=== PATIENT | female | born 1950 | race Caucasian/White ===

== ENCOUNTER → 2017-07-27 | Outpatient (CLI) | payer OTHER ==
[~2017-07-27] MED LIST: ASPI1TAB56 PO; CALC1TAB12 PO; CHOL1TAB42 PO; HYDR-3580 PO; LEVO.075 PO; LIOT5TAB3 PO; MELO15TA20 PO; TYLE325T PO
[2017-07-27 09:27] LABS: APTT (PATIENT) 26.1 SEC (24.3-30.1); HEMATOCRIT 40.3 % (35.0-46.0); MEAN CELL VOLUME 92.2 FL (80.0-100.0); MEAN CORPUSCULAR HGB CONC 33.6 % (32.0-36.0); PLATELET COUNT 289 TH/MM3 (150-450); PROTHROMBIN TIME - PATIENT 10.5 SEC (9.8-11.6); RED BLOOD COUNT 4.37 MIL/MM3 (4.00-5.30); RED CELL DISTRIBUTION WIDTH 13.7 % (11.6-17.2); REVIEW FLAG FINAL; WHITE BLOOD COUNT 5.4 TH/MM3 (4.0-11.0)
[2017-07-27 09:46] LABS: BACTERIA, URINE OCC /hpf; BLOOD, URINE SMALL (NEG); COMMENT (UR) CATH-CULTURE IND; CULTURE IF INDICATED CATH CULTURE IND; GLUCOSE,URINE NEG (NEG); KETONE, URINE NEG (NEG); MUCUS URINE FEW /lpf (OCC); NITRITE,URINE NEG (NEG); PH, URINE 5.5 (5.0-8.5); TRANSITIONAL EPI CELLS, URINE <1 /hpf; URINE COLOR YELLOW (YELLW/STRAW)
[2017-07-27 10:33] LABS: POTASSIUM 4.2 MEQ/L (3.5-5.1)
[2017-07-27 10:34] LABS: BICARBONATE 26.4 MEQ/L (21.0-32.0)
== END ==
LOC: CPRE 07:57
PROVIDERS: ATTEND Orthopaedic Surgery
DX: Z01.812 Encounter for preprocedural laboratory examination (principal); M16.12 Unilateral primary osteoarthritis, left hip; M87.052 Idiopathic aseptic necrosis of left femur; M79.609 Pain in unspecified limb; R82.90 Unspecified abnormal findings in urine
CPT/HCPCS: 36415; 80048; 81001; 85027; 85610; 85730; 87086

== ENCOUNTER 2017-07-31 05:17 | Inpatient (IN) | payer OTHER, MEDICARE ==
[~2017-07-31] VITALS: Ht 154.9 cm; Wt 57.3 kg
[~2017-07-31 05:17] MED LIST changes: -ASPI1TAB56 PO; -HYDR-3580 PO; +MELO-1 PO; -MELO15TA20 PO
[2017-07-31 06:05] LABS: BILIRUBIN, URINE NEG (NEG); BLOOD, URINE NEG (NEG); GLUCOSE,URINE NEG (NEG); KETONE, URINE NEG (NEG); MUCUS URINE FEW /lpf (OCC); NITRITE,URINE NEG (NEG); PH, URINE 5.5 (5.0-8.5); SQUAMOUS EPITHELIAL CELL URINE <1 /hpf (0-5); URINE COLOR YELLOW (YELLW/STRAW); URINE LEUKOCYTE ESTERASE NEG (NEG)
[2017-07-31] MEDS ORDERED: GENTAMICIN SULFATE 80 MG/2 ML VIAL ONE ×2 (06:13)
[2017-07-31] MEDS ORDERED: SODIUM CHLORID 0.9% 500 ML IV PRN ×2 (06:15)
[2017-07-31] MEDS ORDERED: LACTATED RINGER'S 1000 ML IV PRN ×2 (06:15)
[2017-07-31] MEDS ORDERED: CHLORHEXIDINE GLUCONATE 4% SOLN 120 ML BTL TOPICAL SCH ×2 (06:15)
[2017-07-31] MEDS ORDERED: POVIDONE IODINE 5% (ANTISEPSIS KIT) 4 APPLICATIONS EACH NARE PRN ×2 (06:15)
[2017-07-31] MEDS ORDERED: METOPROLOL TARTRATE 25 MG TAB PO PRN ×2 (06:15)
[2017-07-31] MEDS ORDERED: CHLORHEXIDINE GLUCONATE 2 % 1 PACK (2 CLOTHS) TOPICAL PRN ×2 (06:15)
[2017-07-31] MEDS ORDERED: INSULIN HUMAN REGULAR 1,000 UNITS/10 ML VIAL SQ PRN ×2 (06:15)
[2017-07-31] MEDS ORDERED: ceFAZolin 2 GM PREMIX 50 ML IV SCH ×2 (06:15)
[2017-07-31] MEDS ORDERED: ZOLPIDEM TARTRATE 5 MG TAB PO PRN ×2 (06:45)
[2017-07-31] MEDS ORDERED: Post-op Orders (for Pharmacy) MISC XX ONE ×2 (06:45)
[2017-07-31] MEDS ORDERED: MORPHINE SULFATE 8 MG/ML INJ IV PUSH PRN ×2 (06:45)
[2017-07-31] MEDS ORDERED: SODIUM CHLORIDE 0.9% FLUSH 5 ML FLUSH IVF PRN ×2 (06:45)
[2017-07-31] MEDS ORDERED: ONDANSETRON HCL 4 MG/2 ML VIAL IVP PRN ×2 (06:45)
[2017-07-31] MEDS ORDERED: ACETAMINOPHEN/HYDROcodone 325 MG/7.5 MG TAB PO PRN ×2 (06:45)
[2017-07-31] MEDS ORDERED: TRANEXAMIC ACID INJ 0 MG in SODIUM CHLORIDE 0.9% INJ 100 ML IV SCH ×4 (06:45)
[2017-07-31] MEDS ORDERED: BISACODYL 10 MG SUPP RECTAL PRN ×2 (06:45)
[2017-07-31] MEDS ORDERED: MAGNESIUM HYDROXIDE SUSP 30 ML CUP PO PRN ×2 (06:45)
[2017-07-31] MEDS ORDERED: EXPAREL PERI-ARTICULAR INJECTION (TOTAL VOL. 60 ML) P-ARTICULR SCH ×4 (07:00)
[2017-07-31] MEDS ORDERED: SODIUM CHLORIDE 0.9% IV SCH ×8 (07:00→10:00)
[2017-07-31] MEDS ORDERED: TRANEXAMIC ACID IV SCH ×8 (07:00→10:00)
[2017-07-31] MEDS ORDERED: ACETAMINOPHEN 1000 MG/100 ML 100 ML IV ONE ×2 (08:00)
--- NOTE | 2017-07-31 08:59 | HHI.PR ---
Immediate Post Op Note Procedure Date: Jul 31, 2017 Pre Op Diagnosis: (1) Primary osteoarthritis of left hip Post Op Diagnosis: (1) Primary osteoarthritis of left hip Surgeon: Al Tijerina MD Mechanical Specialist(s): JEB Hurley Procedure: Left total hip arthroplasty with Mchenry prosthesis Findings: OA left hip Complications: none Specimen(s) removed: none Estimated blood loss: 300 ml Anesthesia: General, Local (Exparel) Drains: None IVF Patient to: PACU Patient Condition: Good Implant/Devices: SEE IMPLANT LOG (if applicable) Date/Time of Procedure: SEE SURGICAL CARE RECORD Sarbjit Tijerina MD (Charles) Jul 31, 2017 08:59
--- NOTE | 2017-07-31 08:59 | HHI.PR ---
Immediate Post Op Note Procedure Date: Jul 31, 2017 Pre Op Diagnosis: (1) Primary osteoarthritis of left hip Post Op Diagnosis: (1) Primary osteoarthritis of left hip Surgeon: Al Tijerina MD Meteorological Equipment Repairer(s): JEB Hurley Procedure: Left total hip arthroplasty with Aurora prosthesis Findings: OA left hip Complications: none Specimen(s) removed: none Estimated blood loss: 300 ml Anesthesia: General, Local (Exparel) Drains: None IVF Patient to: PACU Patient Condition: Good Implant/Devices: SEE IMPLANT LOG (if applicable) Date/Time of Procedure: SEE SURGICAL CARE RECORD Sarbjit Tijerina MD (Charles) Jul 31, 2017 08:59
[2017-07-31] MEDS: SODIUM CHLORIDE 0.9% FLUSH 5 ML FLUSH IVF SCH ×4 (09:00→21:00)
[2017-07-31] MEDS ORDERED: ASPI-99 PO ×2 (09:04)
[2017-07-31] MEDS ORDERED: HYDR-3580 PO ×2 (09:04)
--- NOTE | 2017-07-31 09:07 | HHI.FF ---
Face to Face Verification Diagnosis: (1) Status post total replacement of left hip Physical Therapy Gait training Hip: Total hip, Protocol: Left, Posterior hip precautions, Progress to weight bearing Canvas Knee Splint: When in bed & 2 pillows btw thighs (for 2 months.) Left LE Weight Bearing: WB as tolerated Left LE Range of Motion: Active ROM Nursing Nursing: Dressing changes Dressing Changes: Daily dressing change, Coverderm/Primapore Additional Instructions Dressing changes begin on postop day 7. Remove steristrips on postop day 14. I have seen patient Mayelin Spain on 07/31/17. My clinical findings support the need for the requested home health care services because: Ltd mobility - disease progression Limited ability to care for self High risk of falls I certify that my clinical findings support that this patient is homebound because: Post-op weakness Unsteady gait/balance Unsafe to leave home unassisted Sarbjit Tijerina MD (Charles) Jul 31, 2017 09:07
[2017-07-31] MEDS ORDERED: DO NOT ADM ANY ANTICOAGULANT DRUGS PRN ×2 (09:15)
[2017-07-31] MEDS: LACTATED RINGER'S 1000 ML INJ 1,000 ML IV SCH ×4 (09:40→21:00)
[2017-07-31] MEDS: KETOROLAC TROMETHAMINE 30 MG/ML (IVP) VIAL IVP SCH ×6 (09:40→21:08)
[2017-07-31] MEDS ORDERED: *morphine SULFATE 8 MG/ML PERIprocedure ONLY ONE ×4 (09:43→09:57)
[2017-07-31] MEDS: CALCIUM/VITAMIN D 250 MG/125 U TAB PO SCH ×4 (10:00→21:00)
[2017-07-31] MEDS: CHOLECALCIFEROL (VIT D3) 1000 UNIT TAB PO SCH ×2 (10:00)
[2017-07-31 11:00] VITALS: BP 111/65; PULSE 79; RESP 18; TEMP 96.5; O2SAT 100
--- NOTE | 2017-07-31 15:31 | RADRPT ---
EXAM DATE/TIME: 07/31/2017 15:18 [place] COMPARISON: No previous studies available for comparison. INDICATIONS : Post op left hip surgery. MEDICAL HISTORY : None. SURGICAL HISTORY : None. ENCOUNTER: Initial ACUITY: 1 day PAIN SCORE: 2/10 LOCATION: Left hip FINDINGS: The patient is status post a total hip arthroplasty with a bipolar prosthesis. Prosthesis is well-sea allison. Alignment is anatomic. A fracture is not appreciated. CONCLUSION: Anatomic alignment. Christophe Payne MD FACR. Board Certified Radiologist. This report was verified electronically.
[2017-07-31 16:00] VITALS: BP 96/67; PULSE 77; RESP 18; TEMP 97.5; O2SAT 98
[2017-07-31 16:15] VITALS: O2SAT 99
--- NOTE | 2017-07-31 17:02 | PD.CONS ---
HPI Service [facility] Consult Requested By Dr. Al Tijerina Reason for Consult Medical management Primary Care Physician Celso Alexander MD Diagnoses: (1) Hypothyroidism (2) Breast cancer (3) Status post total replacement of left hip (4) Primary osteoarthritis of left hip History of Present Illness Patient is a 66-year-old female. Who underwent a left total hip arthroplasty today by Dr. Tijerina. Patient has been having pain in the left hip for at least 9 months. Has had worsening pain and disabling in activities of daily living has tried analgesics NSAIDs and weight loss without relief. Patient therefore elected to have surgery on her left total hip arthroplasty today tolerated the procedure well, has been seen postoperatively Review of Systems Constitutional: DENIES: Diaphoretic episodes, Fatigue, Fever, Weight gain, Weight loss, Chills, Dizziness, Change in appetite Endocrine: DENIES: Abnorml menstrual pattern, Heat/cold intolerance Eyes: DENIES: Blurred vision, Diplopia, Eye inflammation, Eye pain Ears, nose, mouth, throat: DENIES: Tinnitus, Hearing loss, Vertigo Respiratory: DENIES: Apneas, Cough, Snoring, Wheezing, Hemoptysis Cardiovascular: DENIES: Chest pain, Palpitations, Syncope, Dyspnea on Exertion Gastrointestinal: DENIES: Abdominal pain, Black stools, Bloody stools Genitourinary: DENIES: Abnormal vaginal bleeding, Dysmenorrhea Musculoskeletal: COMPLAINS OF: Joint pain, DENIES: Muscle aches, Stiffness, Joint Swelling Integumentary: DENIES: Abnormal pigmentation, Pruritus, Rash, Nail changes Hematologic/lymphatic: DENIES: Bruising, Lymphadenopathy Immunologic/allergic: DENIES: Eczema, Urticaria Neurologic: DENIES: Abnormal gait, Headache, Localized weakness, Paresthesias, Seizures Psychiatric: DENIES: Anxiety, Confusion, Mood changes, Depression Except as stated in HPI: all other systems reviewed are Neg Past Family Social History Allergies: Coded Allergies: No Known Allergies (Unverified , 07/27/17) Past Medical History History of fractured clavicle History of breast cancer on the right Osteoarthritis Hypothyroidism Vitamin D deficiency Past Surgical History Tonsillectomy Breast implants Lumpectomy right breast in 1988 Breast implant redo Right bunionectomy Facelift Thyroidectomy Reported Medications Reported Meds & Active Scripts Active Hydrocodone-Acetaminophen 7.5-325 mg Tab 1 Tab PO Q4H PRN Reported Tylenol (Acetaminophen) 325 Mg Tab 325 Mg PO BID Meloxicam 15 Mg Tab 15 Mg PO DAILY Vitamin D-3 (Cholecalciferol) 2,000 Unit Tab 2,000 Tab PO DAILY Calcium 500 +D (Calcium Carbonate-Cholecalciferol) 500-400 Mg-Unit Tab 1 Tab PO BID Liothyronine (Liothyronine Sodium) 5 Mcg Tab 5 Mcg PO DAILY Synthroid (Levothyroxine Sodium) 75 Mcg Tab 75 Mcg PO DAILY Active Ordered Medications Current Medications Chlorhexidine Gluconate (Hibiclens 4% Top Soln) 1 applic ONCE TOPICAL ; Start 07/31/17 at 06:15; Stop 08/03/17 at 06:14 Cefazolin Sodium/ Dextrose 50 ml @ 100 mls/hr ODD PIECE CHECKER IV Last administered on 07/31/17 07:44; Start 07/31/17 at 06:15; Stop 08/01/17 at 06:14 Tranexamic Acid 573 mg/Sodium Chloride 105.73 ml @ 200 mls/ hr ONCE IV ; Start 07/31/17 at 10:00; Stop 07/31/17 at 16:00; Status DC Bupivacaine Liposome 20 ml/ Sodium Chloride 60 ml @ 120 mls/hr ONCE P-ARTICULR ; Start 07/31/17 at 07:00; Stop 07/31/17 at 13:00; Status DC Tranexamic Acid 573 mg/Sodium Chloride 105.73 ml @ 200 mls/ hr ONCE IV Last administered on 07/31/17 07:42; Start 07/31/17 at 07:00; Stop 07/31/17 at 13:00 ; Status DC Lactated Ringer's 1,000 ml @ 30 mls/hr Q24H PRN IV SEE LABEL COMMENTS Last administered on 07/31/17 06:00; Start 07/31/17 at 06:15; Stop 08/03/17 at 06:14 Sodium Chloride 500 ml @ 30 mls/hr [id number] PRN IV SEE LABEL COMMENTS; Start at 06:15; Stop 08/03/17 at 06:14 Metoprolol Tartrate (Lopressor) 25 mg ODD PIECE CHECKER PRN PO SEE LABEL COMMENTS; Start 07/31/17 at 06:15; Stop 08/03/17 at 06:14 Povidone Iodine (Betadine 5% Antisepsis Kit) 1 applic ODD PIECE CHECKER PRN EACH NARE SEE LABEL COMMENTS Last administered on 07/31/17 06:05; Start 07/31/17 at 06:15 ; Stop 08/03/17 at 06:14 Chlorhexidine Gluconate (Chlorhexidine 2% Cloth) 3 pack ODD PIECE CHECKER PRN TOPICAL SEE LABEL COMMENTS Last administered on 07/31/17 05:35; Start 07/31/17 at 06:15 ; Stop 08/03/17 at 06:14 Insulin Human Regular (NovoLIN R INJ) See Protocol Table ... ODD PIECE CHECKER PRN SQ SEE PROTOCOL TABLE; Start 07/31/17 at 06:15; Stop 08/03/17 at 06:14 Gentamicin Sulfate (Gentamicin Inj) 240 mg STK-MED ONCE .ROUTE Last administered on 07/31/17 07:45; Start 07/31/17 at 06:13; Stop 07/31/17 at 06:14 ; Status DC Lactated Ringer's 1,000 ml @ 80 mls/hr [id number] IV Last administered on 09:40; Start 07/31/17 at 08:30 IV Flush (NS Flush) 2 ml UNSCH PRN IVF FLUSH AFTER USING IV ACCESS; Start 07/31 at 06:45 IV Flush (NS Flush) 2 ml BID IVF ; Start 07/31/17 at 09:00 Cefazolin Sodium 1000 mg/Sodium Chloride 100 ml @ 200 mls/hr Q6H IV ; Start at 14:00; Stop 08/01/17 at 02:29 Miscellaneous Information (Post-op Orders (for Pharmacy)) STAT ONCE XX ; Start 07/31/17 at 06:45; Stop 07/31/17 at 08:17; Status DC Morphine Sulfate (Morphine Inj) 4 mg Q3H PRN IV PUSH BREAKTHROUGH PAIN; Start 07/31/17 at 06:45 Acetaminophen/ Hydrocodone Bitart ([place] 7.5-325 Mg) 1 tab Q4H PRN PO PAIN LESS THAN 5 ON SCALE; Start 07/31/17 at 06:45 Acetaminophen/ Hydrocodone Bitart ([place] 7.5-325 Mg) 2 tab Q4H PRN PO PAIN SCALE 5 TO 10; Start 07/31/17 at 06:45 Ketorolac Tromethamine (Toradol Inj) 15 mg Q6H IVP Last administered on 09:40; Start 07/31/17 at 09:00; Stop 08/02/17 at 03:01 Tranexamic Acid / Sodium Chloride 100 ml @ 200 mls/hr UNSCH IV ; Start at 06:45; Stop 07/31/17 at 07:14; Status UNV Ondansetron HCl (Zofran Inj) 4 mg Q6H PRN IVP NAUSEA OR VOMITING; Start at 06:45 Docusate Sodium (Colace) 100 mg BID PO ; Start 08/01/17 at 21:00 Zolpidem Tartrate (Ambien) 5 mg HS PRN PO SLEEP; Start 07/31/17 at 06:45 Bisacodyl (Dulcolax Supp) 10 mg DAILY PRN RECTAL CONSTIPATION; Start 07/31/17 at 06:45 Magnesium Hydroxide (Milk Of Magnesia Liq) 30 ml DAILY PRN PO CONSTIPATION; Start 07/31/17 at 06:45 Aspirin (Ecotrin Ec) 81 mg BID PO ; Start 08/01/17 at 08:00 Acetaminophen (Tylenol) 325 mg BID PO ; Start 07/31/17 at 21:00 Levothyroxine Sodium (Synthroid) 75 mcg DAILY@0600 PO ; Start 08/01/17 at 06:00 Liothyronine Sodium (Cytomel) 5 mcg DAILY PO ; Start 08/01/17 at 09:00 Calcium/Vitamin D (Oscal-D 250-125) 500 mg BID PO ; Start 07/31/17 at 10:00 Cholecalciferol (Vitamin D3) 2,000 units DAILY PO ; Start 07/31/17 at 10:00 Acetaminophen 100 ml @ As Directed STK-MED ONCE IV ; Start 07/31/17 at 08:00; Stop 07/31/17 at 08:01; Status DC Morphine Sulfate (*morphine INJ PERIprocedure ONLY) 8 mg STK-MED ONCE .ROUTE Last administered on 07/31/17 09:43; Start 07/31/17 at 09:43; Stop 07/31/17 at 09:44; Status DC Morphine Sulfate (*morphine INJ PERIprocedure ONLY) 8 mg STK-MED ONCE .ROUTE Last administered on 11/6/17at 09:57; Start 07/31/17 at 09:57; Stop 07/31/17 at 09:58; Status DC Miscellaneous Information ALL NURSING DEPARTME... UNSCH PRN .XX SEE LABEL COMMENTS; Start 07/31/17 at 09:15; Stop 08/01/17 at 09:14 Family History Father age 83 with renal failure Mother age 77 myocardial infarction Grandmother had diabetes Her daughter has diabetes Social History She is retired computer animator Denies any tobacco Has 3 vodka drinks a week Plays pickle ball and bloating Physical Exam Vital Signs Vital Signs Date Time Temp Pulse Resp B/P (MAP) Pulse Ox O2 Delivery O2 Flow Rate FiO2 07/31/17 16:15 99 Nasal Cannula 2.00 07/31/17 11:00 96.5 79 18 111/65 (80) 100 07/31/17 10:30 79 20 127/67 (87) 100 Nasal Cannula 2 07/31/17 10:15 84 20 121/65 (83) 100 Nasal Cannula 2 07/31/17 10:00 83 20 122/68 (86) 100 Nasal Cannula 2 07/31/17 09:45 82 20 119/66 (83) 100 Nasal Cannula 2 07/31/17 09:30 93 20 104/58 (73) 98 07/31/17 09:19 97.8 110 20 135/66 (89) 100 Nasal Cannula 4 07/31/17 05:55 98.2 90 16 112/74 (87) 96 Physical Exam GENERAL: This is a well-nourished, well-developed patient, in no apparent distress. SKIN: No rashes, ecchymoses or lesions. Cool and dry. HEAD: Atraumatic. Normocephalic. No temporal or scalp tenderness. EYES: Pupils equal round and reactive. Extraocular motions intact. No scleral icterus. No injection or drainage. ENT: Nose without bleeding, purulent drainage or septal hematoma. Throat without erythema, tonsillar hypertrophy or exudate. Uvula midline. Airway patent. NECK: Trachea midline. No JVD or lymphadenopathy. Supple, nontender, no meningeal signs. CARDIOVASCULAR: Regular rate and rhythm without murmurs, gallops, or rubs. RESPIRATORY: Clear to auscultation. Breath sounds equal bilaterally. No wheezes , rales, or rhonchi. GASTROINTESTINAL: Abdomen soft, non-tender, nondistended. No hepato-splenomegaly , or palpable masses. No guarding. MUSCULOSKELETAL: Extremities without clubbing, cyanosis, or edema. No joint tenderness, effusion, or edema noted. No calf tenderness. Negative Homans sign bilaterally. NEUROLOGICAL: Awake and alert. Cranial nerves II through XII intact. Motor and sensory grossly within normal limits. 4 out of 5 muscle strength in all muscle groups. Normal speech. Laboratory Laboratory Tests Test 07/31/17 05:50 Urine Color YELLOW Urine Turbidity CLEAR Urine pH 5.5 Urine Specific [place] 1.019 Urine Protein TRACE Urine Glucose (UA) NEG Urine Ketones NEG Urine Occult Blood NEG Urine Nitrite NEG Urine Bilirubin NEG Urine Urobilinogen LESS THAN 2.0 Urine Leukocyte Esterase NEG Urine RBC 1 Urine WBC LESS THAN 1 Urine Squamous Epithelial Cells <1 Urine Mucus FEW Microscopic Urinalysis Comment CATH-CULT NOT IND Imaging Last Impressions Hip X-Ray 07/31/17 0642 Signed Impressions: Service Date/Time: Monday, July 31, 2017 15:18 - CONCLUSION: Anatomic alignment. Christophe Payne MD Assessment and Plan Problem List: (1) Hypothyroidism ICD Code: E03.9 - Hypothyroidism, unspecified (2) Breast cancer ICD Code: C50.919 - Malignant neoplasm of unspecified site of unspecified female breast (3) Primary osteoarthritis of left hip ICD Code: M16.12 - Unilateral primary osteoarthritis, left hip (4) Status post total replacement of left hip ICD Code: Z96.642 - Presence of left artificial hip joint Assessment and Plan Status post left total hip arthroplasty pain control Meds for constipation Hypothyroidism resume home medications History of breast cancer stable Osteoarthritis chronic continue narcotics at this time Vitamin D deficiency continue home medications Constipation see med reconciliation and when necessary medications Code Status Full code Discussed Condition With Patient and RN Christophe Ritchie DO Jul 31, 2017 17:02
--- NOTE | 2017-07-31 17:02 | PD.CONS ---
HPI Service [facility] ([place], [place])ists Consult Requested By Dr. Al Tijerina Reason for Consult Medical management Primary Care Physician Celso Alexander MD Diagnoses: (1) Hypothyroidism (2) Breast cancer (3) Status post total replacement of left hip (4) Primary osteoarthritis of left hip History of Present Illness Patient is a 66-year-old female. Who underwent a left total hip arthroplasty today by Dr. Tijerina. Patient has been having pain in the left hip for at least 9 months. Has had worsening pain and disabling in activities of daily living has tried analgesics NSAIDs and weight loss without relief. Patient therefore elected to have surgery on her left total hip arthroplasty today tolerated the procedure well, has been seen postoperatively Review of Systems Constitutional: DENIES: Diaphoretic episodes, Fatigue, Fever, Weight gain, Weight loss, Chills, Dizziness, Change in appetite Endocrine: DENIES: Abnorml menstrual pattern, Heat/cold intolerance Eyes: DENIES: Blurred vision, Diplopia, Eye inflammation, Eye pain Ears, nose, mouth, throat: DENIES: Tinnitus, Hearing loss, Vertigo Respiratory: DENIES: Apneas, Cough, Snoring, Wheezing, Hemoptysis Cardiovascular: DENIES: Chest pain, Palpitations, Syncope, Dyspnea on Exertion Gastrointestinal: DENIES: Abdominal pain, Black stools, Bloody stools Genitourinary: DENIES: Abnormal vaginal bleeding, Dysmenorrhea Musculoskeletal: COMPLAINS OF: Joint pain, DENIES: Muscle aches, Stiffness, Joint Swelling Integumentary: DENIES: Abnormal pigmentation, Pruritus, Rash, Nail changes Hematologic/lymphatic: DENIES: Bruising, Lymphadenopathy Immunologic/allergic: DENIES: Eczema, Urticaria Neurologic: DENIES: Abnormal gait, Headache, Localized weakness, Paresthesias, Seizures Psychiatric: DENIES: Anxiety, Confusion, Mood changes, Depression Except as stated in HPI: all other systems reviewed are Neg Past Family Social History Allergies: Coded Allergies: No Known Allergies (Unverified , 07/27/17) Past Medical History History of fractured clavicle History of breast cancer on the right Osteoarthritis Hypothyroidism Vitamin D deficiency Past Surgical History Tonsillectomy Breast implants Lumpectomy right breast in 1988 Breast implant redo Right bunionectomy Facelift Thyroidectomy Reported Medications Reported Meds & Active Scripts Active Hydrocodone-Acetaminophen 7.5-325 mg Tab 1 Tab PO Q4H PRN Reported Tylenol (Acetaminophen) 325 Mg Tab 325 Mg PO BID Meloxicam 15 Mg Tab 15 Mg PO DAILY Vitamin D-3 (Cholecalciferol) 2,000 Unit Tab 2,000 Tab PO DAILY Calcium 500 +D (Calcium Carbonate-Cholecalciferol) 500-400 Mg-Unit Tab 1 Tab PO BID Liothyronine (Liothyronine Sodium) 5 Mcg Tab 5 Mcg PO DAILY Synthroid (Levothyroxine Sodium) 75 Mcg Tab 75 Mcg PO DAILY Active Ordered Medications Current Medications Chlorhexidine Gluconate (Hibiclens 4% Top Soln) 1 applic ONCE TOPICAL ; Start 07/31/17 at 06:15; Stop 08/03/17 at 06:14 Cefazolin Sodium/ Dextrose 50 ml @ 100 mls/hr PHARMACY BENEFIT MANAGER IV Last administered on 07/31/17 07:44; Start 07/31/17 at 06:15; Stop 08/01/17 at 06:14 Tranexamic Acid 573 mg/Sodium Chloride 105.73 ml @ 200 mls/ hr ONCE IV ; Start 07/31/17 at 10:00; Stop 07/31/17 at 16:00; Status DC Bupivacaine Liposome 20 ml/ Sodium Chloride 60 ml @ 120 mls/hr ONCE P-ARTICULR ; Start 07/31/17 at 07:00; Stop 07/31/17 at 13:00; Status DC Tranexamic Acid 573 mg/Sodium Chloride 105.73 ml @ 200 mls/ hr ONCE IV Last administered on 07/31/17 07:42; Start 07/31/17 at 07:00; Stop 07/31/17 at 13:00 ; Status DC Lactated Ringer's 1,000 ml @ 30 mls/hr Q24H PRN IV SEE LABEL COMMENTS Last administered on 07/31/17 06:00; Start 07/31/17 at 06:15; Stop 08/03/17 at 06:14 Sodium Chloride 500 ml @ 30 mls/hr [id number] PRN IV SEE LABEL COMMENTS; Start at 06:15; Stop 08/03/17 at 06:14 Metoprolol Tartrate (Lopressor) 25 mg PHARMACY BENEFIT MANAGER PRN PO SEE LABEL COMMENTS; Start 07/31/17 at 06:15; Stop 08/03/17 at 06:14 Povidone Iodine (Betadine 5% Antisepsis Kit) 1 applic PHARMACY BENEFIT MANAGER PRN EACH NARE SEE LABEL COMMENTS Last administered on 07/31/17 06:05; Start 07/31/17 at 06:15 ; Stop 08/03/17 at 06:14 Chlorhexidine Gluconate (Chlorhexidine 2% Cloth) 3 pack PHARMACY BENEFIT MANAGER PRN TOPICAL SEE LABEL COMMENTS Last administered on 07/31/17 05:35; Start 07/31/17 at 06:15 ; Stop 08/03/17 at 06:14 Insulin Human Regular (NovoLIN R INJ) See Protocol Table ... PHARMACY BENEFIT MANAGER PRN SQ SEE PROTOCOL TABLE; Start 07/31/17 at 06:15; Stop 08/03/17 at 06:14 Gentamicin Sulfate (Gentamicin Inj) 240 mg STK-MED ONCE .ROUTE Last administered on 07/31/17 07:45; Start 07/31/17 at 06:13; Stop 07/31/17 at 06:14 ; Status DC Lactated Ringer's 1,000 ml @ 80 mls/hr [id number] IV Last administered on 09:40; Start 07/31/17 at 08:30 IV Flush (NS Flush) 2 ml UNSCH PRN IVF FLUSH AFTER USING IV ACCESS; Start 07/31 at 06:45 IV Flush (NS Flush) 2 ml BID IVF ; Start 07/31/17 at 09:00 Cefazolin Sodium 1000 mg/Sodium Chloride 100 ml @ 200 mls/hr Q6H IV ; Start at 14:00; Stop 08/01/17 at 02:29 Miscellaneous Information (Post-op Orders (for Pharmacy)) STAT ONCE XX ; Start 07/31/17 at 06:45; Stop 07/31/17 at 08:17; Status DC Morphine Sulfate (Morphine Inj) 4 mg Q3H PRN IV PUSH BREAKTHROUGH PAIN; Start 07/31/17 at 06:45 Acetaminophen/ Hydrocodone Bitart ([place] 7.5-325 Mg) 1 tab Q4H PRN PO PAIN LESS THAN 5 ON SCALE; Start 07/31/17 at 06:45 Acetaminophen/ Hydrocodone Bitart ([place] 7.5-325 Mg) 2 tab Q4H PRN PO PAIN SCALE 5 TO 10; Start 07/31/17 at 06:45 Ketorolac Tromethamine (Toradol Inj) 15 mg Q6H IVP Last administered on 09:40; Start 07/31/17 at 09:00; Stop 08/02/17 at 03:01 Tranexamic Acid / Sodium Chloride 100 ml @ 200 mls/hr UNSCH IV ; Start at 06:45; Stop 07/31/17 at 07:14; Status UNV Ondansetron HCl (Zofran Inj) 4 mg Q6H PRN IVP NAUSEA OR VOMITING; Start at 06:45 Docusate Sodium (Colace) 100 mg BID PO ; Start 08/01/17 at 21:00 Zolpidem Tartrate (Ambien) 5 mg HS PRN PO SLEEP; Start 07/31/17 at 06:45 Bisacodyl (Dulcolax Supp) 10 mg DAILY PRN RECTAL CONSTIPATION; Start 07/31/17 at 06:45 Magnesium Hydroxide (Milk Of Magnesia Liq) 30 ml DAILY PRN PO CONSTIPATION; Start 07/31/17 at 06:45 Aspirin (Ecotrin Ec) 81 mg BID PO ; Start 08/01/17 at 08:00 Acetaminophen (Tylenol) 325 mg BID PO ; Start 07/31/17 at 21:00 Levothyroxine Sodium (Synthroid) 75 mcg DAILY@0600 PO ; Start 08/01/17 at 06:00 Liothyronine Sodium (Cytomel) 5 mcg DAILY PO ; Start 08/01/17 at 09:00 Calcium/Vitamin D (Oscal-D 250-125) 500 mg BID PO ; Start 07/31/17 at 10:00 Cholecalciferol (Vitamin D3) 2,000 units DAILY PO ; Start 07/31/17 at 10:00 Acetaminophen 100 ml @ As Directed STK-MED ONCE IV ; Start 07/31/17 at 08:00; Stop 07/31/17 at 08:01; Status DC Morphine Sulfate (*morphine INJ PERIprocedure ONLY) 8 mg STK-MED ONCE .ROUTE Last administered on 07/31/17 09:43; Start 07/31/17 at 09:43; Stop 07/31/17 at 09:44; Status DC Morphine Sulfate (*morphine INJ PERIprocedure ONLY) 8 mg STK-MED ONCE .ROUTE Last administered on 11/6/17at 09:57; Start 07/31/17 at 09:57; Stop 07/31/17 at 09:58; Status DC Miscellaneous Information ALL NURSING DEPARTME... 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 Denies any tobacco Has 3 vodka drinks a week Plays pickle ball and bloating Physical Exam Vital Signs Vital Signs Date Time Temp Pulse Resp B/P (MAP) Pulse Ox O2 Delivery O2 Flow Rate FiO2 07/31/17 16:15 99 Nasal Cannula 2.00 07/31/17 11:00 96.5 79 18 111/65 (80) 100 07/31/17 10:30 79 20 127/67 (87) 100 Nasal Cannula 2 07/31/17 10:15 84 20 121/65 (83) 100 Nasal Cannula 2 07/31/17 10:00 83 20 122/68 (86) 100 Nasal Cannula 2 07/31/17 09:45 82 20 119/66 (83) 100 Nasal Cannula 2 07/31/17 09:30 93 20 104/58 (73) 98 07/31/17 09:19 97.8 110 20 135/66 (89) 100 Nasal Cannula 4 07/31/17 05:55 98.2 90 16 112/74 (87) 96 Physical Exam GENERAL: This is a well-nourished, well-developed patient, in no apparent distress. SKIN: No rashes, ecchymoses or lesions. Cool and dry. HEAD: Atraumatic. Normocephalic. No temporal or scalp tenderness. EYES: Pupils equal round and reactive. Extraocular motions intact. No scleral icterus. No injection or drainage. ENT: Nose without bleeding, purulent drainage or septal hematoma. Throat without erythema, tonsillar hypertrophy or exudate. Uvula midline. Airway patent. NECK: Trachea midline. No JVD or lymphadenopathy. Supple, nontender, no meningeal signs. CARDIOVASCULAR: Regular rate and rhythm without murmurs, gallops, or rubs. RESPIRATORY: Clear to auscultation. Breath sounds equal bilaterally. No wheezes , rales, or rhonchi. GASTROINTESTINAL: Abdomen soft, non-tender, nondistended. No hepato-splenomegaly , or palpable masses. No guarding. MUSCULOSKELETAL: Extremities without clubbing, cyanosis, or edema. No joint tenderness, effusion, or edema noted. No calf tenderness. Negative Homans sign bilaterally. NEUROLOGICAL: Awake and alert. Cranial nerves II through XII intact. Motor and sensory grossly within normal limits. 4 out of 5 muscle strength in all muscle groups. Normal speech. Laboratory Laboratory Tests Test 07/31/17 05:50 Urine Color YELLOW Urine Turbidity CLEAR Urine pH 5.5 Urine Specific [place] 1.019 Urine Protein TRACE Urine Glucose (UA) NEG Urine Ketones NEG Urine Occult Blood NEG Urine Nitrite NEG Urine Bilirubin NEG Urine Urobilinogen LESS THAN 2.0 Urine Leukocyte Esterase NEG Urine RBC 1 Urine WBC LESS THAN 1 Urine Squamous Epithelial Cells <1 Urine Mucus FEW Microscopic Urinalysis Comment CATH-CULT NOT IND Imaging Last Impressions Hip X-Ray 07/31/17 0642 Signed Impressions: Service Date/Time: Monday, July 31, 2017 15:18 - CONCLUSION: Anatomic alignment. Christophe Payne MD Assessment and Plan Problem List: (1) Hypothyroidism ICD Code: E03.9 - Hypothyroidism, unspecified (2) Breast cancer ICD Code: C50.919 - Malignant neoplasm of unspecified site of unspecified female breast (3) Primary osteoarthritis of left hip ICD Code: M16.12 - Unilateral primary osteoarthritis, left hip (4) Status post total replacement of left hip ICD Code: Z96.642 - Presence of left artificial hip joint Assessment and Plan Status post left total hip arthroplasty pain control Meds for constipation Hypothyroidism resume home medications History of breast cancer stable Osteoarthritis chronic continue narcotics at this time Vitamin D deficiency continue home medications Constipation see med reconciliation and when necessary medications Code Status Full code Discussed Condition With Patient and RN Christophe Ritchie DO Jul 31, 2017 17:02
--- NOTE | 2017-07-31 17:02 | PD.CONS ---
[facility] Reason for Consult Medical management Primary Care Physician Celso Alexander MD Diagnoses: (1) Hypothyroidism (2) Breast cancer (3) Status post total replacement of left hip (4) Primary osteoarthritis of left hip History of Present Illness Patient is a 66-year-old female. Who underwent a left total hip arthroplasty today by Dr. Tijerina. Patient has been having pain in the left hip for at least 9 months. Has had worsening pain and disabling in activities of daily living has tried analgesics NSAIDs and weight loss without relief. Patient therefore elected to have surgery on her left total hip arthroplasty today tolerated the procedure well, has been seen postoperatively Review of Systems Constitutional: DENIES: Diaphoretic episodes, Fatigue, Fever, Weight gain, Weight loss, Chills, Dizziness, Change in appetite Endocrine: DENIES: Abnorml menstrual pattern, Heat/cold intolerance Eyes: DENIES: Blurred vision, Diplopia, Eye inflammation, Eye pain Ears, nose, mouth, throat: DENIES: Tinnitus, Hearing loss, Vertigo Respiratory: DENIES: Apneas, Cough, Snoring, Wheezing, Hemoptysis Cardiovascular: DENIES: Chest pain, Palpitations, Syncope, Dyspnea on Exertion Gastrointestinal: DENIES: Abdominal pain, Black stools, Bloody stools Genitourinary: DENIES: Abnormal vaginal bleeding, Dysmenorrhea Musculoskeletal: COMPLAINS OF: Joint pain, DENIES: Muscle aches, Stiffness, Joint Swelling Integumentary: DENIES: Abnormal pigmentation, Pruritus, Rash, Nail changes Hematologic/lymphatic: DENIES: Bruising, Lymphadenopathy Immunologic/allergic: DENIES: Eczema, Urticaria Neurologic: DENIES: Abnormal gait, Headache, Localized weakness, Paresthesias, Seizures Psychiatric: DENIES: Anxiety, Confusion, Mood changes, Depression Except as stated in HPI: all other systems reviewed are Neg Past Family Social History Allergies: Coded Allergies: No Known Allergies (Unverified , 07/27/17) Past Medical History History of fractured clavicle History of breast cancer on the right Osteoarthritis Hypothyroidism Vitamin D deficiency Past Surgical History Tonsillectomy Breast implants Lumpectomy right breast in 1988 Breast implant redo Right bunionectomy Facelift Thyroidectomy Reported Medications Reported Meds & Active Scripts Active Hydrocodone-Acetaminophen 7.5-325 mg Tab 1 Tab PO Q4H PRN Reported Tylenol (Acetaminophen) 325 Mg Tab 325 Mg PO BID Meloxicam 15 Mg Tab 15 Mg PO DAILY Vitamin D-3 (Cholecalciferol) 2,000 Unit Tab 2,000 Tab PO DAILY Calcium 500 +D (Calcium Carbonate-Cholecalciferol) 500-400 Mg-Unit Tab 1 Tab PO BID Liothyronine (Liothyronine Sodium) 5 Mcg Tab 5 Mcg PO DAILY Synthroid (Levothyroxine Sodium) 75 Mcg Tab 75 Mcg PO DAILY Active Ordered Medications Current Medications Chlorhexidine Gluconate (Hibiclens 4% Top Soln) 1 applic ONCE TOPICAL ; Start 07/31/17 at 06:15; Stop 08/03/17 at 06:14 Cefazolin Sodium/ Dextrose 50 ml @ 100 mls/hr LUMBER YARD WORKER IV Last administered on 07/31/17 07:44; Start 07/31/17 at 06:15; Stop 08/01/17 at 06:14 Tranexamic Acid 573 mg/Sodium Chloride 105.73 ml @ 200 mls/ hr ONCE IV ; Start 07/31/17 at 10:00; Stop 07/31/17 at 16:00; Status DC Bupivacaine Liposome 20 ml/ Sodium Chloride 60 ml @ 120 mls/hr ONCE P-ARTICULR ; Start 07/31/17 at 07:00; Stop 07/31/17 at 13:00; Status DC Tranexamic Acid 573 mg/Sodium Chloride 105.73 ml @ 200 mls/ hr ONCE IV Last administered on 07/31/17 07:42; Start 07/31/17 at 07:00; Stop 07/31/17 at 13:00 ; Status DC Lactated Ringer's 1,000 ml @ 30 mls/hr Q24H PRN IV SEE LABEL COMMENTS Last administered on 07/31/17 06:00; Start 07/31/17 at 06:15; Stop 08/03/17 at 06:14 Sodium Chloride 500 ml @ 30 mls/hr [id number] PRN IV SEE LABEL COMMENTS; Start at 06:15; Stop 08/03/17 at 06:14 Metoprolol Tartrate (Lopressor) 25 mg LUMBER YARD WORKER PRN PO SEE LABEL COMMENTS; Start 07/31/17 at 06:15; Stop 08/03/17 at 06:14 Povidone Iodine (Betadine 5% Antisepsis Kit) 1 applic LUMBER YARD WORKER PRN EACH NARE SEE LABEL COMMENTS Last administered on 07/31/17 06:05; Start 07/31/17 at 06:15 ; Stop 08/03/17 at 06:14 Chlorhexidine Gluconate (Chlorhexidine 2% Cloth) 3 pack LUMBER YARD WORKER PRN TOPICAL SEE LABEL COMMENTS Last administered on 07/31/17 05:35; Start 07/31/17 at 06:15 ; Stop 08/03/17 at 06:14 Insulin Human Regular (NovoLIN R INJ) See Protocol Table ... LUMBER YARD WORKER PRN SQ SEE PROTOCOL TABLE; Start 07/31/17 at 06:15; Stop 08/03/17 at 06:14 Gentamicin Sulfate (Gentamicin Inj) 240 mg STK-MED ONCE .ROUTE Last administered on 07/31/17 07:45; Start 07/31/17 at 06:13; Stop 07/31/17 at 06:14 ; Status DC Lactated Ringer's 1,000 ml @ 80 mls/hr [id number] IV Last administered on 09:40; Start 07/31/17 at 08:30 IV Flush (NS Flush) 2 ml UNSCH PRN IVF FLUSH AFTER USING IV ACCESS; Start 07/31 at 06:45 IV Flush (NS Flush) 2 ml BID IVF ; Start 07/31/17 at 09:00 Cefazolin Sodium 1000 mg/Sodium Chloride 100 ml @ 200 mls/hr Q6H IV ; Start at 14:00; Stop 08/01/17 at 02:29 Miscellaneous Information (Post-op Orders (for Pharmacy)) STAT ONCE XX ; Start 07/31/17 at 06:45; Stop 07/31/17 at 08:17; Status DC Morphine Sulfate (Morphine Inj) 4 mg Q3H PRN IV PUSH BREAKTHROUGH PAIN; Start 07/31/17 at 06:45 Acetaminophen/ Hydrocodone Bitart ([place] 7.5-325 Mg) 1 tab Q4H PRN PO PAIN LESS THAN 5 ON SCALE; Start 07/31/17 at 06:45 Acetaminophen/ Hydrocodone Bitart ([place] 7.5-325 Mg) 2 tab Q4H PRN PO PAIN SCALE 5 TO 10; Start 07/31/17 at 06:45 Ketorolac Tromethamine (Toradol Inj) 15 mg Q6H IVP Last administered on 09:40; Start 07/31/17 at 09:00; Stop 08/02/17 at 03:01 Tranexamic Acid / Sodium Chloride 100 ml @ 200 mls/hr UNSCH IV ; Start at 06:45; Stop 07/31/17 at 07:14; Status UNV Ondansetron HCl (Zofran Inj) 4 mg Q6H PRN IVP NAUSEA OR VOMITING; Start at 06:45 Docusate Sodium (Colace) 100 mg BID PO ; Start 08/01/17 at 21:00 Zolpidem Tartrate (Ambien) 5 mg HS PRN PO SLEEP; Start 07/31/17 at 06:45 Bisacodyl (Dulcolax Supp) 10 mg DAILY PRN RECTAL CONSTIPATION; Start 07/31/17 at 06:45 Magnesium Hydroxide (Milk Of Magnesia Liq) 30 ml DAILY PRN PO CONSTIPATION; Start 07/31/17 at 06:45 Aspirin (Ecotrin Ec) 81 mg BID PO ; Start 08/01/17 at 08:00 Acetaminophen (Tylenol) 325 mg BID PO ; Start 07/31/17 at 21:00 Levothyroxine Sodium (Synthroid) 75 mcg DAILY@0600 PO ; Start 08/01/17 at 06:00 Liothyronine Sodium (Cytomel) 5 mcg DAILY PO ; Start 08/01/17 at 09:00 Calcium/Vitamin D (Oscal-D 250-125) 500 mg BID PO ; Start 07/31/17 at 10:00 Cholecalciferol (Vitamin D3) 2,000 units DAILY PO ; Start 07/31/17 at 10:00 Acetaminophen 100 ml @ As Directed STK-MED ONCE IV ; Start 07/31/17 at 08:00; Stop 07/31/17 at 08:01; Status DC Morphine Sulfate (*morphine INJ PERIprocedure ONLY) 8 mg STK-MED ONCE .ROUTE Last administered on 07/31/17 09:43; Start 07/31/17 at 09:43; Stop 07/31/17 at 09:44; Status DC Morphine Sulfate (*morphine INJ PERIprocedure ONLY) 8 mg STK-MED ONCE .ROUTE Last administered on 11/6/17at 09:57; Start 07/31/17 at 09:57; Stop 07/31/17 at 09:58; Status DC Miscellaneous Information ALL NURSING DEPARTME... UNSCH PRN .XX SEE LABEL COMMENTS; Start 07/31/17 at 09:15; Stop 08/01/17 at 09:14 Family History Father age 83 with renal failure Mother age 77 myocardial infarction Grandmother had diabetes Her daughter has diabetes Social History She is retired computer consultant Denies any tobacco Has 3 vodka drinks a week Plays pickle ball and bloating Physical Exam Vital Signs Vital Signs Date Time Temp Pulse Resp B/P (MAP) Pulse Ox O2 Delivery O2 Flow Rate FiO2 07/31/17 16:15 99 Nasal Cannula 2.00 07/31/17 11:00 96.5 79 18 111/65 (80) 100 07/31/17 10:30 79 20 127/67 (87) 100 Nasal Cannula 2 07/31/17 10:15 84 20 121/65 (83) 100 Nasal Cannula 2 07/31/17 10:00 83 20 122/68 (86) 100 Nasal Cannula 2 07/31/17 09:45 82 20 119/66 (83) 100 Nasal Cannula 2 07/31/17 09:30 93 20 104/58 (73) 98 07/31/17 09:19 97.8 110 20 135/66 (89) 100 Nasal Cannula 4 07/31/17 05:55 98.2 90 16 112/74 (87) 96 Physical Exam GENERAL: This is a well-nourished, well-developed patient, in no apparent distress. SKIN: No rashes, ecchymoses or lesions. Cool and dry. HEAD: Atraumatic. Normocephalic. No temporal or scalp tenderness. EYES: Pupils equal round and reactive. Extraocular motions intact. No scleral icterus. No injection or drainage. ENT: Nose without bleeding, purulent drainage or septal hematoma. Throat without erythema, tonsillar hypertrophy or exudate. Uvula midline. Airway patent. NECK: Trachea midline. No JVD or lymphadenopathy. Supple, nontender, no meningeal signs. CARDIOVASCULAR: Regular rate and rhythm without murmurs, gallops, or rubs. RESPIRATORY: Clear to auscultation. Breath sounds equal bilaterally. No wheezes , rales, or rhonchi. GASTROINTESTINAL: Abdomen soft, non-tender, nondistended. No hepato-splenomegaly , or palpable masses. No guarding. MUSCULOSKELETAL: Extremities without clubbing, cyanosis, or edema. No joint tenderness, effusion, or edema noted. No calf tenderness. Negative Homans sign bilaterally. NEUROLOGICAL: Awake and alert. Cranial nerves II through XII intact. Motor and sensory grossly within normal limits. 4 out of 5 muscle strength in all muscle groups. Normal speech. Laboratory Laboratory Tests Test 07/31/17 05:50 Urine Color YELLOW Urine Turbidity CLEAR Urine pH 5.5 Urine Specific [place] 1.019 Urine Protein TRACE Urine Glucose (UA) NEG Urine Ketones NEG Urine Occult Blood NEG Urine Nitrite NEG Urine Bilirubin NEG Urine Urobilinogen LESS THAN 2.0 Urine Leukocyte Esterase NEG Urine RBC 1 Urine WBC LESS THAN 1 Urine Squamous Epithelial Cells <1 Urine Mucus FEW Microscopic Urinalysis Comment CATH-CULT NOT IND Imaging Last Impressions Hip X-Ray 07/31/17 0642 Signed Impressions: Service Date/Time: Monday, July 31, 2017 15:18 - CONCLUSION: Anatomic alignment. Christophe Payne MD Assessment and Plan Problem List: (1) Hypothyroidism ICD Code: E03.9 - Hypothyroidism, unspecified (2) Breast cancer ICD Code: C50.919 - Malignant neoplasm of unspecified site of unspecified female breast (3) Primary osteoarthritis of left hip ICD Code: M16.12 - Unilateral primary osteoarthritis, left hip (4) Status post total replacement of left hip ICD Code: Z96.642 - Presence of left artificial hip joint Assessment and Plan Status post left total hip arthroplasty pain control Meds for constipation Hypothyroidism resume home medications History of breast cancer stable Osteoarthritis chronic continue narcotics at this time Vitamin D deficiency continue home medications Constipation see med reconciliation and when necessary medications Code Status Full code Discussed Condition With Patient and RN Christophe Ritchie DO Jul 31, 2017 17:02
--- NOTE | 2017-07-31 19:29 | MP ---
cc: Jose ZHOU. DATE OF SURGERY: 07/31/2017 PREOPERATIVE DIAGNOSIS: Primary osteoarthritis left hip. POSTOPERATIVE DIAGNOSIS Primary osteoarthritis left hip. OPERATION PERFORMED Left total hip arthroplasty with Gabriela prosthesis. SURGEON Art Zhou MD MICROFILM PROCESSOR: JEB Hurley ANESTHESIA: General endotracheal anesthesia with supplemental local with Exparel. INDICATIONS AND FINDINGS This 66 year-old woman began having left hip pain about 9 months ago which has progressively worsened to the point that her ambulation tolerance is only about 15 minutes because of the pain. She has pain in the groin, hip, thigh and buttocks area. She has difficulty moving the hip. Prior to this she was very active, doing a variety of sports. She has not responded to conservative measures with anti-inflammatory agents, analgesics, intra-articular corticosteroids, activity modification, exercise and ambulatory aids. X-rays show severe arthritis in the hip going to [id number] with some irregularity in the posterior aspect of the acetabulum. There are multiple cysts. Clinical findings showed pain on motion with significantly antalgic gait and decreased motion. OPERATIVE FINDINGS Severe osteoarthritis in the hip with loss of articular cartilage to [id number]. The prosthesis used was a Gabriela prosthesis with the acetabulum being a Tritanium cluster shell size 50 mm outer diameter with a single screw along with a 32 mm inner diameter, 0 degrees liner of X3 polyethylene. The femur was an Accolade II, femoral stem size 3 x 127 degrees with a Biolox Delta 32 mm outer diameter -4 mm neck length head. PROCEDURE The patient was brought to the clean-air operating suite and general anesthetic was administered. She was placed in the lateral position on a Biomet lateral positioner with a left hip up and an axillary roll under the right shoulder. The left hip, thigh and leg were then prepped with alcohol, Hibiclens and Chloraprep and draped in the usual manner with the hip draped free. An appropriate time-out procedure was carried out. A posterior lateral incision was then made going from the mid trochanteric area proximally about 15 cm. The incision was deepened through the subcutaneous tissues to the upper portion of the fascia carmen and the gluteus fascia. Gluteus fascia was then incised in line with its fibers along the raphe and the gluteus gladys fibers were split. A retractor was placed under the gluteus minimus exposing the capsule and the piriformis and obturator conjoined tendon. The conjoin tendon was then was detached from the greater trochanter on the undersurface and reflected posteriorly. The capsule was then opened longitudinally and then down to the femoral neck along the posterior aspect of the femoral neck. The hip was then dislocated. The femoral neck was then transected with the oscillating saw. The head was then removed. Retractors were placed about the proximal femur. Femoral preparation was initiated with a box osteotome followed by a curette for identification of the canal and then serial broaching going from size zero to size three. Calcar planing was carried out. The hip was then repositioned. The acetabulum was exposed. The soft tissues were then removed from about the acetabulum including the labrum, ligamentum teres and other tissues. Reaming was then initiated starting with a size 43 mm reamer and going in 1-mm increments to size 49 mm. At 49 mm a trial reduction was carried out with a size 50 cup. This seated appropriately with a good fit and good coverage. The trial prosthesis was removed. The titanium cluster shell was impacted into place and seated appropriately. Drill hole was made in the superior aspect of the acetabulum through the fenestration in the cuff. An appropriate size screw was then inserted. The 0 degree liner was then impacted into place into the acetabular cup. The hip was then repositioned. A trial reduction was carried out with the -4 mm neck length trial. This was somewhat tight, therefore, re-broaching was carried out with the #2 and #3 broaches. After this was done and calcar planing was completed, the stability and mobility were found to be appropriate. The leg length was appropriate. There was no instability. There is no pistoning. The hip motion was excellent. The trial prosthesis and broach were then removed. The medullary canal was cleaned with pulse lavage. Exparel was then injected throughout the hip. The femoral stem size 3 x 132 degrees was impacted into the proximal femur. When this was fully seated a trial reduction was again carried out with a -4 mm neck length trial. This was appropriate, therefore, the trunnion was cleaned and dried and fitted with a Biolox Delta femoral head size 32 mm outer diameter by -4 mm neck length. When this was fully seated the hip was taken through a range of motion which showed excellent range of motion with excellent stability, no pistoning, and appropriate leg lengths. After the remainder of the Exparel was injected throughout the hip, the wound was then closed in layers using #1 Vicryl interrupted [id number] sutures for capsular closure, a transosseous #1 suture for reattachment of the capsule end, external rotators to the appropriate position in the posterior aspect of the greater trochanter. The sciatic nerve was checked and was found to be unmolested. The upper portion of the fascia carmen and the gluteus fascia were then repaired with #1 Vicryl interrupted [id number] sutures. The subcutaneous tissues were closed with 2-0 Vicryl interrupted simple sutures with buried knots. The skin was closed with continuous subcuticular closure of 4-0 Monocryl. The wound was then dressed with Steri-Strips followed by dry dressing in the form of a silver impregnated dressing. The patient was placed into a knee immobilizer and transferred to the recovery room in satisfactory condition having tolerated the procedure well. Counts were correct. Specimens none. Estimated blood loss 300 mm. MD BRI Santoyo/AZALIA /9:14 AM /6:56 PM
[2017-07-31 20:00] VITALS: BP 103/59; PULSE 76; RESP 17; TEMP 97.5; O2SAT 99
[2017-07-31] MEDS: ACETAMINOPHEN 325 MG TAB PO SCH ×2 (21:00)
[2017-07-31] MEDS: ACETAMINOPHEN/HYDROcodone 325 MG/7.5 MG TAB PO PRN ×2 (21:11)
[2017-08-01] VITALS: BP 102/53; PULSE 71; RESP 16; TEMP 97.9; O2SAT 98
[2017-08-01] MEDS: KETOROLAC TROMETHAMINE 30 MG/ML (IVP) VIAL IVP SCH ×6 (02:38→14:36)
[2017-08-01] MEDS: ACETAMINOPHEN/HYDROcodone 325 MG/7.5 MG TAB PO PRN ×2 (02:40)
[2017-08-01 04:00] VITALS: BP 95/51; PULSE 95; RESP 17; TEMP 98; O2SAT 99
[2017-08-01] MEDS ORDERED: LEVOTHYROXINE SODIUM 75 MCG TAB PO SCH ×2 (06:00)
--- NOTE | 2017-08-01 06:16 | PD.ORT.PN ---
Subjective Post Op Day #: 1 Subjective Remarks She is doing well. She wants to go home today. Distance Walked Stood to pivot; became diaphoretic. Objective Vitals Vital Signs Date Time Temp Pulse Resp B/P (MAP) Pulse Ox O2 Delivery O2 Flow Rate FiO2 08/01/17 00:00 97.9 71 16 102/53 (69) 98 07/31/17 20:00 97.5 76 17 103/59 (74) 99 07/31/17 16:15 99 Nasal Cannula 2.00 07/31/17 16:00 97.5 77 18 96/67 (77) 98 07/31/17 11:00 96.5 79 18 111/65 (80) 100 07/31/17 10:30 79 20 127/67 (87) 100 Nasal Cannula 2 07/31/17 10:15 84 20 121/65 (83) 100 Nasal Cannula 2 07/31/17 10:00 83 20 122/68 (86) 100 Nasal Cannula 2 07/31/17 09:45 82 20 119/66 (83) 100 Nasal Cannula 2 07/31/17 09:30 93 20 104/58 (73) 98 07/31/17 09:19 97.8 110 20 135/66 (89) 100 Nasal Cannula 4 I/O 07/31/17 07/31/17 07/31/17 08/01/17 08/01/17 08/01/17 07:00 15:00 23:00 07:00 15:00 23:00 Intake Total 1880 ml 200 ml Output Total 200 ml Balance 1680 ml 200 ml Intake Oral 480 ml IV Total 200 ml Other 1400 ml Output Estimated Blood Loss 200 ml # Voids 1 Imaging Last 24 hours Impressions Hip X-Ray 07/31/17 0642 Signed Impressions: Service Date/Time: Monday, July 31, 2017 15:18 - CONCLUSION: Anatomic alignment. Christophe Payne MD Objective Remarks She is resting comfortably, supine in bed. The dressing is dry and intact. The neurovascular status is intact. Assessment & Plan Ortho Post Op Day #: 1 Problem List: (1) Status post total replacement of left hip ICD Codes: Z96.642 - Presence of left artificial hip joint Plan: Continue postop care and PT. Assessment and Plan Condition: Good. Orthopaedically stable. DVT prophylaxis: TEDs, ASA, sequentials. Discharge plans: Home with C Has appointment. Rx: [place] 7.5/325 Sarbjit Tijerina MD (Charles) Aug 01, 2017 06:16
[2017-08-01 07:51] VITALS: O2SAT 99
[2017-08-01 08:00] VITALS: BP 80/53; PULSE 92; RESP 18; TEMP 98.5; O2SAT 97
[2017-08-01] MEDS ORDERED: ASPIRIN EC 81 MG TABEC PO SCH ×2 (08:00)
[2017-08-01] MEDS: CALCIUM/VITAMIN D 250 MG/125 U TAB PO SCH ×2 (08:55)
[2017-08-01] MEDS: ACETAMINOPHEN 325 MG TAB PO SCH ×2 (08:55)
[2017-08-01] MEDS: CHOLECALCIFEROL (VIT D3) 1000 UNIT TAB PO SCH ×2 (08:55)
[2017-08-01] MEDS: SODIUM CHLORIDE 0.9% FLUSH 5 ML FLUSH IVF SCH ×2 (08:56)
[2017-08-01] MEDS: LACTATED RINGER'S 1000 ML INJ 1,000 ML IV SCH ×2 (08:56)
[2017-08-01] MEDS ORDERED: LIOTHYRONINE SODIUM 5 MCG TAB PO SCH ×2 (09:00)
[2017-08-01 11:49] LABS: AUTOMATED NEUTROPHIL # 7.6 TH/MM3 (1.8-7.7); BASOPHIL % 0.4 % (0.0-2.0); EOSINOPHIL # 0.1 TH/MM3 (0-0.4); EOSINOPHIL % 0.7 % (0.0-4.0); HEMATOCRIT 31.7 % (35.0-46.0); HEMOGLOBIN 10.7 GM/DL (11.6-15.3); LYMPH % 17.4 % (9.0-44.0); LYMPHOCYTE # 1.9 TH/MM3 (1.0-4.8); MEAN CELL VOLUME 92.9 FL (80.0-100.0); MEAN CORPUSCULAR HEMOGLOBIN 31.5 PG (27.0-34.0); MEAN CORPUSCULAR HGB CONC 33.9 % (32.0-36.0); MEAN PLATELET VOLUME 8.9 FL (7.0-11.0); MONO % 10.8 % (0.0-8.0); MONOCYTE # 1.2 TH/MM3 (0-0.9); NEUT % 70.7 % (16.0-70.0); PLATELET COUNT 236 TH/MM3 (150-450); RED BLOOD COUNT 3.41 MIL/MM3 (4.00-5.30); RED CELL DISTRIBUTION WIDTH 13.7 % (11.6-17.2); WHITE BLOOD COUNT 10.8 TH/MM3 (4.0-11.0)
[2017-08-01 12:00] VITALS: BP 103/64; PULSE 84; RESP 18; TEMP 98.1; O2SAT 97
[2017-08-01 12:09] LABS: ALT (GPT) 42 U/L (10-53); AST (GOT) 53 U/L (15-37); BICARBONATE 27.8 MEQ/L (21.0-32.0); BLOOD UREA NITROGEN 11 MG/DL (7-18); CALCIUM 8.9 MG/DL (8.5-10.1); CHLORIDE 103 MEQ/L (98-107); CREATININE 0.86 MG/DL (0.50-1.00); GLOMERULAR FILTRATION RATE 66 ML/MIN (>89); GLUCOSE,RANDOM 94 MG/DL (74-106); MAGNESIUM 2.1 MG/DL (1.5-2.5); PHOSPHORUS 2.8 MG/DL (2.5-4.9); SODIUM (NA) 138 MEQ/L (136-145)
[2017-08-01 12:18] LABS: ALKALINE PHOSPHATASE 53 U/L (45-117); FREE T4 1.35 NG/DL (0.76-1.46); TOTAL BILIRUBIN ADULT 0.5 MG/DL (0.2-1.0)
[2017-08-01 14:22] VITALS: BP 95/60
--- NOTE | 2017-08-01 15:06 | HHI.PR ---
Subjective Remarks Patient is a 66-year-old female. Who underwent a left total hip arthroplasty today by Dr. Zhou. Patient has been having pain in the left hip for at least 9 months. Has had worsening pain and disabling in activities of daily living has tried analgesics NSAIDs and weight loss without relief. Patient therefore elected to have surgery on her left total hip arthroplasty today tolerated the procedure well, has been seen postoperatively 11-7 CLEARED MEDICALLY FOR DC DC TO HOME HYDRATE IF BLOOD PRESSURE IS BORDERLINE DW RN AND PT AND Objective Vitals Vital Signs Date Time Temp Pulse Resp B/P (MAP) Pulse Ox O2 Delivery O2 Flow Rate FiO2 08/01/17 14:22 95/60 (72) 08/01/17 12:00 98.1 84 18 103/64 (77) 97 08/01/17 08:00 98.5 92 18 80/53 (62) 97 08/01/17 07:51 99 Nasal Cannula 2.00 08/01/17 04:00 98.0 95 17 95/51 (66) 99 08/01/17 00:00 97.9 71 16 102/53 (69) 98 07/31/17 20:00 97.5 76 17 103/59 (74) 99 07/31/17 16:15 99 Nasal Cannula 2.00 07/31/17 16:00 97.5 77 18 96/67 (77) 98 I/O 07/31/17 07/31/17 07/31/17 08/01/17 08/01/17 08/01/17 07:00 15:00 23:00 07:00 15:00 23:00 Intake Total 1880 ml 200 ml 480 ml Output Total 200 ml Balance 1680 ml 200 ml 480 ml Intake Oral 480 ml 480 ml IV Total 200 ml Other 1400 ml Output Estimated Blood Loss 200 ml # Voids 1 3 # Bowel Movements 0 Result Diagram: 08/01/17 1132 08/01/17 1132 Other Results Laboratory Tests Test 07/31/17 05:50 08/01/17 11:32 Urine Color YELLOW Urine Turbidity CLEAR Urine pH 5.5 Urine Specific [place] 1.019 Urine Protein TRACE mg/dL Urine Glucose (UA) NEG mg/dL Urine Ketones NEG mg/dL Urine Occult Blood NEG Urine Nitrite NEG Urine Bilirubin NEG Urine Urobilinogen LESS THAN 2.0 MG/DL Urine Leukocyte Esterase NEG Urine RBC 1 /hpf Urine WBC LESS THAN 1 /hpf Urine Squamous Epithelial Cells <1 /hpf Urine Mucus FEW /lpf Microscopic Urinalysis Comment CATH-CULT NOT IND White Blood Count 10.8 TH/MM3 Red Blood Count 3.41 MIL/MM3 Hemoglobin 10.7 GM/DL Hematocrit 31.7 % Mean Corpuscular Volume 92.9 FL Mean Corpuscular Hemoglobin 31.5 PG Mean Corpuscular Hemoglobin Concent 33.9 % Red Cell Distribution Width 13.7 % Platelet Count 236 TH/MM3 Mean Platelet Volume 8.9 FL Neutrophils (%) (Auto) 70.7 % Lymphocytes (%) (Auto) 17.4 % Monocytes (%) (Auto) 10.8 % Eosinophils (%) (Auto) 0.7 % Basophils (%) (Auto) 0.4 % Neutrophils # (Auto) 7.6 TH/MM3 Lymphocytes # (Auto) 1.9 TH/MM3 Monocytes # (Auto) 1.2 TH/MM3 Eosinophils # (Auto) 0.1 TH/MM3 Basophils # (Auto) 0.0 TH/MM3 CBC Comment DIFF FINAL Differential Comment Blood Urea Nitrogen 11 MG/DL Creatinine 0.86 MG/DL Random Glucose 94 MG/DL Total Protein 6.0 GM/DL Albumin 3.0 GM/DL Calcium Level 8.9 MG/DL Phosphorus Level 2.8 MG/DL Magnesium Level 2.1 MG/DL Alkaline Phosphatase 53 U/L Aspartate Amino Transf (AST/SGOT) 53 U/L Alanine Aminotransferase (ALT/SGPT) 42 U/L Total Bilirubin 0.5 MG/DL Sodium Level 138 MEQ/L Potassium Level 4.4 MEQ/L Chloride Level 103 MEQ/L Carbon Dioxide Level 27.8 MEQ/L Anion Gap 7 MEQ/L Estimat Glomerular Filtration Rate 66 ML/MIN Free Thyroxine 1.35 NG/DL Thyroid Stimulating Hormone 3rd Gen 0.893 uIU/ML Imaging Last Impressions Hip X-Ray 07/31/17 0642 Signed Impressions: Service Date/Time: Monday, July 31, 2017 15:18 - CONCLUSION: Anatomic alignment. Christophe Payne MD Objective Remarks GENERAL: This is a well-nourished, well-developed patient, in no apparent distress. SKIN: No rashes, ecchymoses or lesions. Cool and dry. HEAD: Atraumatic. Normocephalic. No temporal or scalp tenderness. EYES: Pupils equal round and reactive. Extraocular motions intact. No scleral icterus. No injection or drainage. ENT: Nose without bleeding, purulent drainage or septal hematoma. Throat without erythema, tonsillar hypertrophy or exudate. Uvula midline. Airway patent. NECK: Trachea midline. No JVD or lymphadenopathy. Supple, nontender, no meningeal signs. CARDIOVASCULAR: Regular rate and rhythm without murmurs, gallops, or rubs. RESPIRATORY: Clear to auscultation. Breath sounds equal bilaterally. No wheezes , rales, or rhonchi. GASTROINTESTINAL: Abdomen soft, non-tender, nondistended. No hepato-splenomegaly , or palpable masses. No guarding. MUSCULOSKELETAL: Extremities without clubbing, cyanosis, or edema. No joint tenderness, effusion, or edema noted. No calf tenderness. Negative Homans sign bilaterally. NEUROLOGICAL: Awake and alert. Cranial nerves II through XII intact. Motor and sensory grossly within normal limits. 5 out of 5 muscle strength in all muscle groups. Normal speech. INSIGHT AND JUDGEMENT ARE GOOD MOOD AND BEHAVIOR ARE APPROPRIATE Procedures Jose ZHOU. DATE OF SURGERY: 07/31/2017 PREOPERATIVE DIAGNOSIS: Primary osteoarthritis left hip. POSTOPERATIVE DIAGNOSIS Primary osteoarthritis left hip. OPERATION PERFORMED Left total hip arthroplasty with [place] prosthesis. SURGEON Art Zhou MD SIGNALS COLLECTOR/ANALYST: JEB Hurley ANESTHESIA: General endotracheal anesthesia with supplemental local with Exparel. INDICATIONS AND FINDINGS This 66 year-old woman began having left hip pain about 9 months ago which has progressively worsened to the point that her ambulation tolerance is only about 15 minutes because of the pain. She has pain in the groin, hip, thigh and buttocks area. She has difficulty moving the hip. Prior to this she was very active, doing a variety of sports. She has not responded to conservative measures with anti-inflammatory agents, analgesics, intra-articular corticosteroids, activity modification, exercise and ambulatory aids. X-rays show severe arthritis in the hip going to [id number] with some irregularity in the posterior aspect of the acetabulum. There are multiple cysts. Clinical findings showed pain on motion with significantly antalgic gait and decreased motion. OPERATIVE FINDINGS Severe osteoarthritis in the hip with loss of articular cartilage to [id number]. The prosthesis used was a Gabriela prosthesis with the acetabulum being a Tritanium cluster shell size 50 mm outer diameter with a single screw along with a 32 mm inner diameter, 0 degrees liner of X3 polyethylene. The femur was an Accolade II, femoral stem size 3 x 127 degrees with a Biolox Delta 32 mm outer diameter -4 mm neck length head. PROCEDURE The patient was brought to the clean-air operating suite and general anesthetic was administered. She was placed in the lateral position on a Biomet lateral positioner with a left hip up and an axillary roll under the right shoulder. The left hip, thigh and leg were then prepped with alcohol, Hibiclens and Chloraprep and draped in the usual manner with the hip draped free. An appropriate time-out procedure was carried out. A posterior lateral incision was then made going from the mid trochanteric area proximally about 15 cm. The incision was deepened through the subcutaneous tissues to the upper portion of the fascia carmen and the gluteus fascia. Gluteus fascia was then incised in line with its fibers along the raphe and the gluteus gladys fibers were split. A retractor was placed under the gluteus minimus exposing the capsule and the piriformis and obturator conjoined tendon. The conjoin tendon was then was detached from the greater trochanter on the undersurface and reflected posteriorly. The capsule was then opened longitudinally and then down to the femoral neck along the posterior aspect of the femoral neck. The hip was then dislocated. The femoral neck was then transected with the oscillating saw. The head was then removed. Retractors were placed about the proximal femur. Femoral preparation was initiated with a box osteotome followed by a curette for identification of the canal and then serial broaching going from size zero to size three. Calcar planing was carried out. The hip was then repositioned. The acetabulum was exposed. The soft tissues were then removed from about the acetabulum including the labrum, ligamentum teres and other tissues. Reaming was then initiated starting with a size 43 mm reamer and going in 1-mm increments to size 49 mm. At 49 mm a trial reduction was carried out with a size 50 cup. This seated appropriately with a good fit and good coverage. The trial prosthesis was removed. The titanium cluster shell was impacted into place and seated appropriately. Drill hole was made in the superior aspect of the acetabulum through the fenestration in the cuff. An appropriate size screw was then inserted. The 0 degree liner was then impacted into place into the acetabular cup. The hip was then repositioned. A trial reduction was carried out with the -4 mm neck length trial. This was somewhat tight, therefore, re-broaching was carried out with the #2 and #3 broaches. After this was done and calcar planing was completed, the stability and mobility were found to be appropriate. The leg length was appropriate. There was no instability. There is no pistoning. The hip motion was excellent. The trial prosthesis and broach were then removed. The medullary canal was cleaned with pulse lavage. Exparel was then injected throughout the hip. The femoral stem size 3 x 132 degrees was impacted into the proximal femur. When this was fully seated a trial reduction was again carried out with a -4 mm neck length trial. This was appropriate, therefore, the trunnion was cleaned and dried and fitted with a Biolox Delta femoral head size 32 mm outer diameter by -4 mm neck length. When this was fully seated the hip was taken through a range of motion which showed excellent range of motion with excellent stability, no pistoning, and appropriate leg lengths. After the remainder of the Exparel was injected throughout the hip, the wound was then closed in layers using #1 Vicryl interrupted [id number] sutures for capsular closure, a transosseous #1 suture for reattachment of the capsule end, external rotators to the appropriate position in the posterior aspect of the greater trochanter. The sciatic nerve was checked and was found to be unmolested. The upper portion of the fascia carmen and the gluteus fascia were then repaired with #1 Vicryl interrupted [id number] sutures. The subcutaneous tissues were closed with 2-0 Vicryl interrupted simple sutures with buried knots. The skin was closed with continuous subcuticular closure of 4-0 Monocryl. The wound was then dressed with Steri-Strips followed by dry dressing in the form of a silver impregnated dressing. The patient was placed into a knee immobilizer and transferred to the recovery room in satisfactory condition having tolerated the procedure well. Counts were correct. Specimens none. Estimated blood loss 300 mm. Medications and IVs Current Medications Chlorhexidine Gluconate (Hibiclens 4% Top Soln) 1 applic ONCE TOPICAL ; Start 07/31/17 at 06:15; Stop 08/03/17 at 06:14 Cefazolin Sodium/ Dextrose 50 ml @ 100 mls/hr SR TECHNICAL SALES CONSULTANT IV Last administered on 07/31/17 07:44; Start 07/31/17 at 06:15; Stop 08/01/17 at 06:14; Status DC Tranexamic Acid 573 mg/Sodium Chloride 105.73 ml @ 200 mls/ hr ONCE IV ; Start 07/31/17 at 10:00; Stop 07/31/17 at 16:00; Status DC Bupivacaine Liposome 20 ml/ Sodium Chloride 60 ml @ 120 mls/hr ONCE P-ARTICULR ; Start 07/31/17 at 07:00; Stop 07/31/17 at 13:00; Status DC Tranexamic Acid 573 mg/Sodium Chloride 105.73 ml @ 200 mls/ hr ONCE IV Last administered on 07/31/17 07:42; Start 07/31/17 at 07:00; Stop 07/31/17 at 13:00 ; Status DC Lactated Ringer's 1,000 ml @ 30 mls/hr Q24H PRN IV SEE LABEL COMMENTS Last administered on 07/31/17 06:00; Start 07/31/17 at 06:15; Stop 08/03/17 at 06:14 Sodium Chloride 500 ml @ 30 mls/hr [id number] PRN IV SEE LABEL COMMENTS; Start at 06:15; Stop 08/03/17 at 06:14 Metoprolol Tartrate (Lopressor) 25 mg SR TECHNICAL SALES CONSULTANT PRN PO SEE LABEL COMMENTS; Start 07/31/17 at 06:15; Stop 08/03/17 at 06:14 Povidone Iodine (Betadine 5% Antisepsis Kit) 1 applic SR TECHNICAL SALES CONSULTANT PRN EACH NARE SEE LABEL COMMENTS Last administered on 07/31/17 06:05; Start 07/31/17 at 06:15 ; Stop 08/03/17 at 06:14 Chlorhexidine Gluconate (Chlorhexidine 2% Cloth) 3 pack SR TECHNICAL SALES CONSULTANT PRN TOPICAL SEE LABEL COMMENTS Last administered on 07/31/17 05:35; Start 07/31/17 at 06:15 ; Stop 08/03/17 at 06:14 Insulin Human Regular (NovoLIN R INJ) See Protocol Table ... SR TECHNICAL SALES CONSULTANT PRN SQ SEE PROTOCOL TABLE; Start 07/31/17 at 06:15; Stop 08/03/17 at 06:14 Gentamicin Sulfate (Gentamicin Inj) 240 mg STK-MED ONCE .ROUTE Last administered on 07/31/17 07:45; Start 07/31/17 at 06:13; Stop 07/31/17 at 06:14 ; Status DC Lactated Ringer's 1,000 ml @ 80 mls/hr [id number] IV Last administered on 09:40; Start 07/31/17 at 08:30 IV Flush (NS Flush) 2 ml UNSCH PRN IVF FLUSH AFTER USING IV ACCESS; Start 07/31 at 06:45 IV Flush (NS Flush) 2 ml BID IVF ; Start 07/31/17 at 09:00 Cefazolin Sodium 1000 mg/Sodium Chloride 100 ml @ 200 mls/hr Q6H IV Last administered on 08/01/17 02:41; Start 07/31/17 at 14:00; Stop 08/01/17 at 02:29 ; Status DC Miscellaneous Information (Post-op Orders (for Pharmacy)) STAT ONCE XX ; Start 07/31/17 at 06:45; Stop 07/31/17 at 08:17; Status DC Morphine Sulfate (Morphine Inj) 4 mg Q3H PRN IV PUSH BREAKTHROUGH PAIN; Start 07/31/17 at 06:45 Acetaminophen/ Hydrocodone Bitart ([place] 7.5-325 Mg) 1 tab Q4H PRN PO PAIN LESS THAN 5 ON SCALE Last administered on 08/01/17 02:40; Start 07/31/17 at 06: 45 Acetaminophen/ Hydrocodone Bitart ([place] 7.5-325 Mg) 2 tab Q4H PRN PO PAIN SCALE 5 TO 10; Start 07/31/17 at 06:45 Ketorolac Tromethamine (Toradol Inj) 15 mg Q6H IVP Last administered on 14:36; Start 07/31/17 at 09:00; Stop 08/02/17 at 03:01 Tranexamic Acid / Sodium Chloride 100 ml @ 200 mls/hr UNSCH IV ; Start at 06:45; Stop 07/31/17 at 07:14; Status UNV Ondansetron HCl (Zofran Inj) 4 mg Q6H PRN IVP NAUSEA OR VOMITING; Start at 06:45 Docusate Sodium (Colace) 100 mg BID PO ; Start 08/01/17 at 21:00 Zolpidem Tartrate (Ambien) 5 mg HS PRN PO SLEEP; Start 07/31/17 at 06:45 Bisacodyl (Dulcolax Supp) 10 mg DAILY PRN RECTAL CONSTIPATION; Start 07/31/17 at 06:45 Magnesium Hydroxide (Milk Of Magnesia Liq) 30 ml DAILY PRN PO CONSTIPATION; Start 07/31/17 at 06:45 Aspirin (Ecotrin Ec) 81 mg BID PO Last administered on 08/01/17 08:54; Start 08/01/17 at 08:00 Acetaminophen (Tylenol) 325 mg BID PO Last administered on 08/01/17 08:55; Start 07/31/17 at 21:00 Levothyroxine Sodium (Synthroid) 75 mcg DAILY@0600 PO ; Start 08/01/17 at 06:00 Liothyronine Sodium (Cytomel) 5 mcg DAILY PO ; Start 08/01/17 at 09:00 Calcium/Vitamin D (Oscal-D 250-125) 500 mg BID PO ; Start 07/31/17 at 10:00 Cholecalciferol (Vitamin D3) 2,000 units DAILY PO ; Start 07/31/17 at 10:00 Acetaminophen 100 ml @ As Directed STK-MED ONCE IV ; Start 07/31/17 at 08:00; Stop 07/31/17 at 08:01; Status DC Morphine Sulfate (*morphine INJ PERIprocedure ONLY) 8 mg STK-MED ONCE .ROUTE Last administered on 07/31/17 09:43; Start 07/31/17 at 09:43; Stop 07/31/17 at 09:44; Status DC Morphine Sulfate (*morphine INJ PERIprocedure ONLY) 8 mg STK-MED ONCE .ROUTE Last administered on 07/31/17 09:57; Start 07/31/17 at 09:57; Stop 07/31/17 at 09:58; Status DC Miscellaneous Information ALL NURSING DEPARTME... UNSCH PRN .XX SEE LABEL COMMENTS; Start 07/31/17 at 09:15; Stop 08/01/17 at 09:14; Status DC A/P Problem List: (1) Hypothyroidism ICD Code: E03.9 - Hypothyroidism, unspecified (2) Breast cancer ICD Code: C50.919 - Malignant neoplasm of unspecified site of unspecified female breast (3) Primary osteoarthritis of left hip ICD Code: M16.12 - Unilateral primary osteoarthritis, left hip (4) Status post total replacement of left hip ICD Code: Z96.642 - Presence of left artificial hip joint Assessment and Plan Status post left total hip arthroplasty pain control Meds for constipation Hypothyroidism resume home medications History of breast cancer stable Osteoarthritis chronic continue narcotics at this time Vitamin D deficiency continue home medications Constipation see med reconciliation and when necessary medications Discharge Planning MEDICALLY CLEARED FOR Christophe Magana DO Aug 01, 2017 15:06
--- NOTE | 2017-08-01 15:06 | HHI.PR ---
Subjective Remarks Patient is a 66-year-old female. Who underwent a left total hip arthroplasty today by Dr. Zhou. Patient has been having pain in the left hip for at least 9 months. Has had worsening pain and disabling in activities of daily living has tried analgesics NSAIDs and weight loss without relief. Patient therefore elected to have surgery on her left total hip arthroplasty today tolerated the procedure well, has been seen postoperatively 11-7 CLEARED MEDICALLY FOR DC DC TO HOME HYDRATE IF BLOOD PRESSURE IS BORDERLINE DW RN AND PT AND Objective Vitals Vital Signs Date Time Temp Pulse Resp B/P (MAP) Pulse Ox O2 Delivery O2 Flow Rate FiO2 08/01/17 14:22 95/60 (72) 08/01/17 12:00 98.1 84 18 103/64 (77) 97 08/01/17 08:00 98.5 92 18 80/53 (62) 97 08/01/17 07:51 99 Nasal Cannula 2.00 08/01/17 04:00 98.0 95 17 95/51 (66) 99 08/01/17 00:00 97.9 71 16 102/53 (69) 98 07/31/17 20:00 97.5 76 17 103/59 (74) 99 07/31/17 16:15 99 Nasal Cannula 2.00 07/31/17 16:00 97.5 77 18 96/67 (77) 98 I/O 07/31/17 07/31/17 07/31/17 08/01/17 08/01/17 08/01/17 07:00 15:00 23:00 07:00 15:00 23:00 Intake Total 1880 ml 200 ml 480 ml Output Total 200 ml Balance 1680 ml 200 ml 480 ml Intake Oral 480 ml 480 ml IV Total 200 ml Other 1400 ml Output Estimated Blood Loss 200 ml # Voids 1 3 # Bowel Movements 0 Result Diagram: 08/01/17 1132 08/01/17 1132 Other Results Laboratory Tests Test 07/31/17 05:50 08/01/17 11:32 Urine Color YELLOW Urine Turbidity CLEAR Urine pH 5.5 Urine Specific [place] 1.019 Urine Protein TRACE mg/dL Urine Glucose (UA) NEG mg/dL Urine Ketones NEG mg/dL Urine Occult Blood NEG Urine Nitrite NEG Urine Bilirubin NEG Urine Urobilinogen LESS THAN 2.0 MG/DL Urine Leukocyte Esterase NEG Urine RBC 1 /hpf Urine WBC LESS THAN 1 /hpf Urine Squamous Epithelial Cells <1 /hpf Urine Mucus FEW /lpf Microscopic Urinalysis Comment CATH-CULT NOT IND White Blood Count 10.8 TH/MM3 Red Blood Count 3.41 MIL/MM3 Hemoglobin 10.7 GM/DL Hematocrit 31.7 % Mean Corpuscular Volume 92.9 FL Mean Corpuscular Hemoglobin 31.5 PG Mean Corpuscular Hemoglobin Concent 33.9 % Red Cell Distribution Width 13.7 % Platelet Count 236 TH/MM3 Mean Platelet Volume 8.9 FL Neutrophils (%) (Auto) 70.7 % Lymphocytes (%) (Auto) 17.4 % Monocytes (%) (Auto) 10.8 % Eosinophils (%) (Auto) 0.7 % Basophils (%) (Auto) 0.4 % Neutrophils # (Auto) 7.6 TH/MM3 Lymphocytes # (Auto) 1.9 TH/MM3 Monocytes # (Auto) 1.2 TH/MM3 Eosinophils # (Auto) 0.1 TH/MM3 Basophils # (Auto) 0.0 TH/MM3 CBC Comment DIFF FINAL Differential Comment Blood Urea Nitrogen 11 MG/DL Creatinine 0.86 MG/DL Random Glucose 94 MG/DL Total Protein 6.0 GM/DL Albumin 3.0 GM/DL Calcium Level 8.9 MG/DL Phosphorus Level 2.8 MG/DL Magnesium Level 2.1 MG/DL Alkaline Phosphatase 53 U/L Aspartate Amino Transf (AST/SGOT) 53 U/L Alanine Aminotransferase (ALT/SGPT) 42 U/L Total Bilirubin 0.5 MG/DL Sodium Level 138 MEQ/L Potassium Level 4.4 MEQ/L Chloride Level 103 MEQ/L Carbon Dioxide Level 27.8 MEQ/L Anion Gap 7 MEQ/L Estimat Glomerular Filtration Rate 66 ML/MIN Free Thyroxine 1.35 NG/DL Thyroid Stimulating Hormone 3rd Gen 0.893 uIU/ML Imaging Last Impressions Hip X-Ray 07/31/17 0642 Signed Impressions: Service Date/Time: Monday, July 31, 2017 15:18 - CONCLUSION: Anatomic alignment. Christophe Payne MD Objective Remarks GENERAL: This is a well-nourished, well-developed patient, in no apparent distress. SKIN: No rashes, ecchymoses or lesions. Cool and dry. HEAD: Atraumatic. Normocephalic. No temporal or scalp tenderness. EYES: Pupils equal round and reactive. Extraocular motions intact. No scleral icterus. No injection or drainage. ENT: Nose without bleeding, purulent drainage or septal hematoma. Throat without erythema, tonsillar hypertrophy or exudate. Uvula midline. Airway patent. NECK: Trachea midline. No JVD or lymphadenopathy. Supple, nontender, no meningeal signs. CARDIOVASCULAR: Regular rate and rhythm without murmurs, gallops, or rubs. RESPIRATORY: Clear to auscultation. Breath sounds equal bilaterally. No wheezes , rales, or rhonchi. GASTROINTESTINAL: Abdomen soft, non-tender, nondistended. No hepato-splenomegaly , or palpable masses. No guarding. MUSCULOSKELETAL: Extremities without clubbing, cyanosis, or edema. No joint tenderness, effusion, or edema noted. No calf tenderness. Negative Homans sign bilaterally. NEUROLOGICAL: Awake and alert. Cranial nerves II through XII intact. Motor and sensory grossly within normal limits. 5 out of 5 muscle strength in all muscle groups. Normal speech. INSIGHT AND JUDGEMENT ARE GOOD MOOD AND BEHAVIOR ARE APPROPRIATE Procedures Jose ZHOU. DATE OF SURGERY: 07/31/2017 PREOPERATIVE DIAGNOSIS: Primary osteoarthritis left hip. POSTOPERATIVE DIAGNOSIS Primary osteoarthritis left hip. OPERATION PERFORMED Left total hip arthroplasty with [place] prosthesis. SURGEON Art Zhou MD CAPTAIN RO[employer] SERVICE: JEB Hurley ANESTHESIA: General endotracheal anesthesia with supplemental local with Exparel. INDICATIONS AND FINDINGS This 66 year-old woman began having left hip pain about 9 months ago which has progressively worsened to the point that her ambulation tolerance is only about 15 minutes because of the pain. She has pain in the groin, hip, thigh and buttocks area. She has difficulty moving the hip. Prior to this she was very active, doing a variety of sports. She has not responded to conservative measures with anti-inflammatory agents, analgesics, intra-articular corticosteroids, activity modification, exercise and ambulatory aids. X-rays show severe arthritis in the hip going to [id number] with some irregularity in the posterior aspect of the acetabulum. There are multiple cysts. Clinical findings showed pain on motion with significantly antalgic gait and decreased motion. OPERATIVE FINDINGS Severe osteoarthritis in the hip with loss of articular cartilage to [id number]. The prosthesis used was a Gabriela prosthesis with the acetabulum being a Tritanium cluster shell size 50 mm outer diameter with a single screw along with a 32 mm inner diameter, 0 degrees liner of X3 polyethylene. The femur was an Accolade II, femoral stem size 3 x 127 degrees with a Biolox Delta 32 mm outer diameter -4 mm neck length head. PROCEDURE The patient was brought to the clean-air operating suite and general anesthetic was administered. She was placed in the lateral position on a Biomet lateral positioner with a left hip up and an axillary roll under the right shoulder. The left hip, thigh and leg were then prepped with alcohol, Hibiclens and Chloraprep and draped in the usual manner with the hip draped free. An appropriate time-out procedure was carried out. A posterior lateral incision was then made going from the mid trochanteric area proximally about 15 cm. The incision was deepened through the subcutaneous tissues to the upper portion of the fascia carmen and the gluteus fascia. Gluteus fascia was then incised in line with its fibers along the raphe and the gluteus gladys fibers were split. A retractor was placed under the gluteus minimus exposing the capsule and the piriformis and obturator conjoined tendon. The conjoin tendon was then was detached from the greater trochanter on the undersurface and reflected posteriorly. The capsule was then opened longitudinally and then down to the femoral neck along the posterior aspect of the femoral neck. The hip was then dislocated. The femoral neck was then transected with the oscillating saw. The head was then removed. Retractors were placed about the proximal femur. Femoral preparation was initiated with a box osteotome followed by a curette for identification of the canal and then serial broaching going from size zero to size three. Calcar planing was carried out. The hip was then repositioned. The acetabulum was exposed. The soft tissues were then removed from about the acetabulum including the labrum, ligamentum teres and other tissues. Reaming was then initiated starting with a size 43 mm reamer and going in 1-mm increments to size 49 mm. At 49 mm a trial reduction was carried out with a size 50 cup. This seated appropriately with a good fit and good coverage. The trial prosthesis was removed. The titanium cluster shell was impacted into place and seated appropriately. Drill hole was made in the superior aspect of the acetabulum through the fenestration in the cuff. An appropriate size screw was then inserted. The 0 degree liner was then impacted into place into the acetabular cup. The hip was then repositioned. A trial reduction was carried out with the -4 mm neck length trial. This was somewhat tight, therefore, re-broaching was carried out with the #2 and #3 broaches. After this was done and calcar planing was completed, the stability and mobility were found to be appropriate. The leg length was appropriate. There was no instability. There is no pistoning. The hip motion was excellent. The trial prosthesis and broach were then removed. The medullary canal was cleaned with pulse lavage. Exparel was then injected throughout the hip. The femoral stem size 3 x 132 degrees was impacted into the proximal femur. When this was fully seated a trial reduction was again carried out with a -4 mm neck length trial. This was appropriate, therefore, the trunnion was cleaned and dried and fitted with a Biolox Delta femoral head size 32 mm outer diameter by -4 mm neck length. When this was fully seated the hip was taken through a range of motion which showed excellent range of motion with excellent stability, no pistoning, and appropriate leg lengths. After the remainder of the Exparel was injected throughout the hip, the wound was then closed in layers using #1 Vicryl interrupted [id number] sutures for capsular closure, a transosseous #1 suture for reattachment of the capsule end, external rotators to the appropriate position in the posterior aspect of the greater trochanter. The sciatic nerve was checked and was found to be unmolested. The upper portion of the fascia carmen and the gluteus fascia were then repaired with #1 Vicryl interrupted [id number] sutures. The subcutaneous tissues were closed with 2-0 Vicryl interrupted simple sutures with buried knots. The skin was closed with continuous subcuticular closure of 4-0 Monocryl. The wound was then dressed with Steri-Strips followed by dry dressing in the form of a silver impregnated dressing. The patient was placed into a knee immobilizer and transferred to the recovery room in satisfactory condition having tolerated the procedure well. Counts were correct. Specimens none. Estimated blood loss 300 mm. Medications and IVs Current Medications Chlorhexidine Gluconate (Hibiclens 4% Top Soln) 1 applic ONCE TOPICAL ; Start 07/31/17 at 06:15; Stop 08/03/17 at 06:14 Cefazolin Sodium/ Dextrose 50 ml @ 100 mls/hr POTTERY KILN BUILDER IV Last administered on 07/31/17 07:44; Start 07/31/17 at 06:15; Stop 08/01/17 at 06:14; Status DC Tranexamic Acid 573 mg/Sodium Chloride 105.73 ml @ 200 mls/ hr ONCE IV ; Start 07/31/17 at 10:00; Stop 07/31/17 at 16:00; Status DC Bupivacaine Liposome 20 ml/ Sodium Chloride 60 ml @ 120 mls/hr ONCE P-ARTICULR ; Start 07/31/17 at 07:00; Stop 07/31/17 at 13:00; Status DC Tranexamic Acid 573 mg/Sodium Chloride 105.73 ml @ 200 mls/ hr ONCE IV Last administered on 07/31/17 07:42; Start 07/31/17 at 07:00; Stop 07/31/17 at 13:00 ; Status DC Lactated Ringer's 1,000 ml @ 30 mls/hr Q24H PRN IV SEE LABEL COMMENTS Last administered on 07/31/17 06:00; Start 07/31/17 at 06:15; Stop 08/03/17 at 06:14 Sodium Chloride 500 ml @ 30 mls/hr [id number] PRN IV SEE LABEL COMMENTS; Start at 06:15; Stop 08/03/17 at 06:14 Metoprolol Tartrate (Lopressor) 25 mg POTTERY KILN BUILDER PRN PO SEE LABEL COMMENTS; Start 07/31/17 at 06:15; Stop 08/03/17 at 06:14 Povidone Iodine (Betadine 5% Antisepsis Kit) 1 applic POTTERY KILN BUILDER PRN EACH NARE SEE LABEL COMMENTS Last administered on 07/31/17 06:05; Start 07/31/17 at 06:15 ; Stop 08/03/17 at 06:14 Chlorhexidine Gluconate (Chlorhexidine 2% Cloth) 3 pack POTTERY KILN BUILDER PRN TOPICAL SEE LABEL COMMENTS Last administered on 07/31/17 05:35; Start 07/31/17 at 06:15 ; Stop 08/03/17 at 06:14 Insulin Human Regular (NovoLIN R INJ) See Protocol Table ... POTTERY KILN BUILDER PRN SQ SEE PROTOCOL TABLE; Start 07/31/17 at 06:15; Stop 08/03/17 at 06:14 Gentamicin Sulfate (Gentamicin Inj) 240 mg STK-MED ONCE .ROUTE Last administered on 07/31/17 07:45; Start 07/31/17 at 06:13; Stop 07/31/17 at 06:14 ; Status DC Lactated Ringer's 1,000 ml @ 80 mls/hr [id number] IV Last administered on 09:40; Start 07/31/17 at 08:30 IV Flush (NS Flush) 2 ml UNSCH PRN IVF FLUSH AFTER USING IV ACCESS; Start 07/31 at 06:45 IV Flush (NS Flush) 2 ml BID IVF ; Start 07/31/17 at 09:00 Cefazolin Sodium 1000 mg/Sodium Chloride 100 ml @ 200 mls/hr Q6H IV Last administered on 08/01/17 02:41; Start 07/31/17 at 14:00; Stop 08/01/17 at 02:29 ; Status DC Miscellaneous Information (Post-op Orders (for Pharmacy)) STAT ONCE XX ; Start 07/31/17 at 06:45; Stop 07/31/17 at 08:17; Status DC Morphine Sulfate (Morphine Inj) 4 mg Q3H PRN IV PUSH BREAKTHROUGH PAIN; Start 07/31/17 at 06:45 Acetaminophen/ Hydrocodone Bitart (Coram 7.5-325 Mg) 1 tab Q4H PRN PO PAIN LESS THAN 5 ON SCALE Last administered on 08/01/17 02:40; Start 07/31/17 at 06: 45 Acetaminophen/ Hydrocodone Bitart (Coram 7.5-325 Mg) 2 tab Q4H PRN PO PAIN SCALE 5 TO 10; Start 07/31/17 at 06:45 Ketorolac Tromethamine (Toradol Inj) 15 mg Q6H IVP Last administered on 14:36; Start 07/31/17 at 09:00; Stop 08/02/17 at 03:01 Tranexamic Acid / Sodium Chloride 100 ml @ 200 mls/hr UNSCH IV ; Start at 06:45; Stop 07/31/17 at 07:14; Status UNV Ondansetron HCl (Zofran Inj) 4 mg Q6H PRN IVP NAUSEA OR VOMITING; Start at 06:45 Docusate Sodium (Colace) 100 mg BID PO ; Start 08/01/17 at 21:00 Zolpidem Tartrate (Ambien) 5 mg HS PRN PO SLEEP; Start 07/31/17 at 06:45 Bisacodyl (Dulcolax Supp) 10 mg DAILY PRN RECTAL CONSTIPATION; Start 07/31/17 at 06:45 Magnesium Hydroxide (Milk Of Magnesia Liq) 30 ml DAILY PRN PO CONSTIPATION; Start 07/31/17 at 06:45 Aspirin (Ecotrin Ec) 81 mg BID PO Last administered on 08/01/17 08:54; Start 08/01/17 at 08:00 Acetaminophen (Tylenol) 325 mg BID PO Last administered on 08/01/17 08:55; Start 07/31/17 at 21:00 Levothyroxine Sodium (Synthroid) 75 mcg DAILY@0600 PO ; Start 08/01/17 at 06:00 Liothyronine Sodium (Cytomel) 5 mcg DAILY PO ; Start 08/01/17 at 09:00 Calcium/Vitamin D (Oscal-D 250-125) 500 mg BID PO ; Start 07/31/17 at 10:00 Cholecalciferol (Vitamin D3) 2,000 units DAILY PO ; Start 07/31/17 at 10:00 Acetaminophen 100 ml @ As Directed STK-MED ONCE IV ; Start 07/31/17 at 08:00; Stop 07/31/17 at 08:01; Status DC Morphine Sulfate (*morphine INJ PERIprocedure ONLY) 8 mg STK-MED ONCE .ROUTE Last administered on 07/31/17 09:43; Start 07/31/17 at 09:43; Stop 07/31/17 at 09:44; Status DC Morphine Sulfate (*morphine INJ PERIprocedure ONLY) 8 mg STK-MED ONCE .ROUTE Last administered on 07/31/17 09:57; Start 07/31/17 at 09:57; Stop 07/31/17 at 09:58; Status DC Miscellaneous Information ALL NURSING DEPARTME... UNSCH PRN .XX SEE LABEL COMMENTS; Start 07/31/17 at 09:15; Stop 08/01/17 at 09:14; Status DC A/P Problem List: (1) Hypothyroidism ICD Code: E03.9 - Hypothyroidism, unspecified (2) Breast cancer ICD Code: C50.919 - Malignant neoplasm of unspecified site of unspecified female breast (3) Primary osteoarthritis of left hip ICD Code: M16.12 - Unilateral primary osteoarthritis, left hip (4) Status post total replacement of left hip ICD Code: Z96.642 - Presence of left artificial hip joint Assessment and Plan Status post left total hip arthroplasty pain control Meds for constipation Hypothyroidism resume home medications History of breast cancer stable Osteoarthritis chronic continue narcotics at this time Vitamin D deficiency continue home medications Constipation see med reconciliation and when necessary medications Discharge Planning MEDICALLY CLEARED FOR Christophe Magana DO Aug 01, 2017 15:06
[2017-08-01 17:11] LABS: HEMOGLOBIN A1C 5.8 % (4.3-6.0)
[2017-08-01] MEDS ORDERED: DOCUSATE SODIUM 100 MG CAP PO SCH ×2 (21:00)
== END 2017-08-01 16:07 | disposition home health service (06) | DRG 470 ==
LOC: HSDI 05:17 → N06B 11:03
PROVIDERS: ADMIT Orthopaedic Surgery; ATTEND Orthopaedic Surgery
PROC: 0SRB02A Replacement of Left Hip Joint with Metal on Polyethylene Synthetic Substitute, Uncemented, Open Approach (ICD-10-PCS; principal; 2017-07-31 07:18)
DX: M16.12 Unilateral primary osteoarthritis, left hip (principal); E55.9 Vitamin D deficiency, unspecified; E03.9 Hypothyroidism, unspecified; Z85.3 Personal history of malignant neoplasm of breast; Z98.82 Breast implant status; K59.00 Constipation, unspecified
CPT/HCPCS: 73502; 80053; 81001; 83036; 83735; 84100; 84439; 84443; 85025; 86850; 86900; 86901; 94150; C9290; J0131; J0690; J1580; J1885; J2270; J7120; L1830